=== PATIENT | female | born 1945 | race Caucasian/White ===

== ENCOUNTER 2017-03-27 13:17 | Emergency (ER) | payer MEDICAID, MEDICARE, OTHER ==
--- OUTSIDE RECORDS SUMMARY | 2017-03-27 14:40 | XMS REPORT ---
:1945 External Reference #:[id number] Author Organization [facility] Address [address] [place] [address] Phone [phone] Care Team Providers Name Role Phone Naveen Ly MD Care Team Information [place] Facilitator Unavailable Naveen Ly MD Primary Care Physician Unavailable Payers Type Date Identification Numbers Payment Provider Subscriber Commercial Effective: Policy Number: Medicare Blue Ppo [place] 2017 [id number] PayID: [id number] [address] [address] [place] [address] Medicaid Policy Number: [id number] Medicaid [place] PayID: [id number] [address] [facility] [place] [address] Problems Description No Information Social History Description No Information Available Allergies, Adverse Reactions, Alerts Date Description Reaction Status Severity Comments 01/22/1999 Penicillin Urticaria active 01/22/1999 Ceclor Urticaria active 01/22/1999 Tetanus swollen arm active 01/22/1999 Sulfa Drugs Urticaria active 01/22/1999 Morphine Sulfate possible hives active 01/22/1999 Tetracycline Urticaria active 01/22/1999 Amoxicillin Urticaria active 01/22/1999 Erythro Urticaria active 01/22/1999 Cipro Urticaria active 01/22/1999 Keflex Urticaria active 01/22/1999 Floxin Urticaria active 09/01/1999 Macrobid Urticaria active 03/08/2017 Contrast Dye Urticaria active Medications Medication Date Status Form Strength Qnty SIG Indications Ordering Provider Lyrica 00/00 Active Capsules 25mg 1 every 8 Unknown /0000 hrs Ferrous Sulfate 00/00 Active Tablets 325mg 1 by mouth Unknown /0000 bid Aspirin Adult Low 00/00 Active Tablets 81mg 1 by mouth Unknown Dose /0000 DR every day Tab-A-Wilma Active Tablets 1 by mouth Unknown /0000 every day Magnesium Oxide Active Capsules 400mg two every Unknown -MG Supplement / evening Fluoxetine HCL Active Capsules 20mg 1 by mouth Unknown /0000 every day Spironolactone Active Tablets 25mg 1 by mouth Unknown /0000 every day Valsartan-Hydrochl Active Tablets 160-25mg 1 by mouth Unknown orothiazide / every day Levothyroxine Active Tablets 50mcg 1 by mouth Unknown Sodium / every day Vitamin D Active Capsules 1 by mouth Unknown / every day Atorvastatin Active Tablets 40mg 1 by mouth Unknown Calcium every day Metformin HCL Active Tablets 1000mg take one tablet by mouth twice a day Opana Active Tablets 10mg use 1 by Unknown /0000 mouth every 8 hours Oxymorphone HCL ER Active Tablets 10mg 1 every Unknown / ER 12HR twelve hours Omeprazole 08/24 Hx Capsules 20mg 30cap 1 po qd s vianey Quiles, 03/08 M.D. Note 05/08 Hx flower may have Desirae - dental [facility] 08/24 work \\, has stopped the plavix and has no heart murmur at present Xanax 05/08 Hx Tablets 0.25mg 30tab 1 tab po s QHS prn Desirae, - [employer] 03/08 Mobic 04/07 Hx Tablets 7.5mg 60tab 1-2 PO qd s prn Desirae, - [employer] 03/08 Flexeril 03/24 Hx Tablets 10mg 30tab 1 po tid s prn muscle Desirae, - spasm [facility] 03/08 Zithromax Z-Peter 03/14 Hx Tablets 250mg 1Pack as racheal Blair, 03/24 M.D. Medrol Dose Peter 01/23 Hx Tablets 4mg 1PK take as directed Desirae - [employer] 03/24 Lipitor 01/22 Hx Tablets 40mg 30tab 1 qd s Desirae, - [employer] 03/08 Ketek 01/03 Hx Tablets 5Day Dose 1PK as [place] Peter Saini, - On Package M.D. 01/08 Zithromax 12/26 Hx Capsules 250mg 11cap 2 tabs po s x1, then 1 Desirae, - tab po qd [employer] 01/03 x 9 more days Robitussin ac 12/26 Hx 4Oz 1-2 tsp po q4h prn Desirae, - cough [employer] 03/25 Note 12/26 Hx flower was seen by me Desirae, - today and [employer] 03/24 return to work until wednesday, 11\\\\05 Lipitor 10/29 Hx Tablets 20mg 30tab 1 po qhs s Desirae, - [employer] 01/22 Ibuprofen 10/29 Hx Tablets 400mg 60tab one po q s 12h with Desirae, - food as [employer] 04/07 Nasonex 10/29 Hx 50mcg 1unit 2 sprays s each Desirae, - nostril qd [employer] 03/08 x 2 weeks Prevacid 10/29 Hx Capsules 15mg 30cap 1 qd s Desirae, - [employer] 08/24 HCTZ - 09/04 Hx 25mg 30uni 1 po qam Alecia Hydrochlorothiazid /2004 ts Desirae, e - [employer] 03/08 Cortisporin Otic 09/04 Hx 10ml 4-5 qtts Alecia Sol in l ear Desirae, - canal tid [employer] 03/25 x 5D Zyrtec 09/04 Hx Tablets 10mg 30tab 1 po qd s Desirae, - [employer] 03/08 Zithromax 07/09 Hx Tablets 250mg 6tabs 2 Tabs Day 1 Desirae, - [employer] 09/04 Tab qd Days 2 Thru 5 Albuterol Mdi 07/09 Hx 1unit 2 Puffs s Q4H prn Desirae, - Cough Or [employer] 03/08 Whee Lipitor 07/09 Hx Tablets 10mg 30tab 1 po qd s Desirae, - [employer] 10/29 Vicodin 07/03 Hx Tablets 5mg;500 60tab 1-2 po q6h mg s prn Desirae, - [employer] 10/29 Singulair 06/12 Hx 10mg 30uni 1 po qhs ts Desirae, - [employer] 03/08 Levoxyl 05/01 Hx 50mcg 30uni 1 qd ts Desirae, - [employer] 03/08 Prednisone 04/23 Hx 20mg 18uni 3 qd x 3d, ts 2 qd x 3d, Desirae, - 1 qd x 3d [employer] 07/03 Nebulizer 04/23 Hx 1unit s Desirae, - [employer] 03/25 Nebulizer Kits And 04/23 Hx use as Alecia directed Desirae, - [employer] 03/25 Duoneb 04/23 Hx 1Box use as directed Desirae, - [employer] 03/08 Zithromax 04/23 Hx 500mg 3unit one po for s three days Desirae, - [employer] 07/03 Diflucan 03/04 Hx 150mg 1unit 1 po one s time Desirae, - [employer] 04/24 Tessalon Pearls 02/25 Hx 100mg 30uni 1 po tid ts prn For Jimmy, - Cough Afnp-C 03/07 Levoxyl 02/21 Hx 88mcg 30uni 1 qd ts Desirae, - [employer] 05/01 Mucinex 02/20 Hx 600mg 1Bott one bid le prn Jimmy, - Afnp-C 04/24 Lotrimin CR 02/20 Hx 15gm apply bid to Jimmy, - afftected Afnp-C 04/24 Ibuprofen 01/30 Hx 800mg 60uni 1 tab ts q12hrs Desirae, - [employer] 10/29 Estrace 01/15 Hx 0.5mg 30uni 1 qd ts Desirae, - [employer] 03/08 Bactroban Cream 01/15 Hx 15gm apply to affected Desirae, - areas [employer] 04/24 daily directed Levoxyl 12/12 Hx 25mcg 30uni 2 qd ts Desirae, - [employer] 02/21 Zithromax 11/07 Hx 250mg 6unit 2 tabs day s 1 Desirae, - [employer] 12/12 tab qd days 2 thru 5 Nicoderm-MMD 11/02 Hx Patch 1Set 21 mg/d x 4 wk, 14 Desirae, - mg/d x 2 [employer] 01/15 wk, 7 mg/d x 2 wk Zithromax 09/20 Hx 250mg 6unit 2 tabs day s 1 Desirae, - [employer] 11/02 tab qd days 2 thru 5 Singulair 09/20 Hx 10mg 30uni 1 po qhs ts Jimmy, - Afnp-C 04/24 Mycolog-II 07/30 Hx Cream 30gm apply bid to Desirae, - affected [employer] 01/15 Combivent Mdi 07/04 Hx 1unit 2 puffs s qid Jimmy, - Afnp-C 04/24 Robitussin DM 07/04 Hx 4Oz 1-2 tsp q4h prn as Jimmy, - needed for Afnp-C 04/24 Zithromax 06/21 Hx 250mg 6unit 2 tabs day s 1 Jimmy, - Afnp-C 06/26 tab qd days 2 thru 5 Mucinex 06/21 Hx 600mg 20uni One bid ts prn Jimmy, - Afnp-C 07/04 Effexor XR 06/21 Hx Tablets 75mg 60tab 2 po qd s Desirae, - [employer] 03/08 Effexor XR 05/18 Hx 75mg 30uni 1 po qd ts Desirae, - [employer] 07/04 Zithromax 01/02 Hx 250mg 6unit 2 tabs day s 1 Desirae, - [employer] 02/26 tab qd days 2 thru 5 Paxil CR 12/14 Hx 37.5mg 30uni 1 po qd ts Desirae, - [employer] 05/18 Premarin 12/14 Hx .3mg 30uni 1 po qd ts Desirae, - [employer] 01/15 Celebrex 12/06 Hx Tabs 200mg 60tab 1 po bid s Desirae, - [employer] 03/29 Lexapro 12/06 Hx 10mg 28uni 1 PO qd ts Desirae, - [employer] 12/14 Serzone 11/16 Hx 150mg 60uni 1 bid ts Desirae, - [employer] 12/06 Ultram 08/31 Hx 50mg 90uni 1-2 po q6h ts prn Desirae, - [employer] 07/03 Inderal LA 08/02 Hx 80mg 30uni one qd ts Desirae, - [employer] 12/12 Xanax 08/02 Hx .25mg 30uni 1 po q hs ts Desirae, - [employer] 12/26 Inderal 08/02 Hx 20mg 60uni 1 PO bid ts Desirae, - [employer] 03/08 Norvasc 04/21 Hx 5mg 30uni 1 po qd ts Desirae, - [employer] 03/08 Ultram 04/21 Hx 50mg 30uni 1 PO Q6H ts prn Desirae, - [employer] 08/31 Depakote 03/29 Hx 500mg 60uni 1 q am 1 ts q pm Desirae, - [employer] 07/03 Nexium 02/23 Hx 40mg 30uni 1 qd ts Desirae, - [employer] 03/27 Entex Pse 01/23 Hx 30uni 1 bid prn ts Congestion Desirae, - [employer] 08/31 Zithromax 01/17 Hx 250mg 6unit 2 Tabs Day s 1 Desirae, - [employer] 01/27 Tab qd Days 2 Thru 5 Z-Pack 12/22 Hx 1unit as s Directed Desirae, - [employer] 12/28 Note 12/19 Hx PT Has Not Taken Her Desirae, - Plavix In [employer] 03/27 1 And May Have Dental Work This Week. Shower Seat 11/04 Hx DX Chronic Pain, Desirae, - Pre-Syncop [employer] 03/27 Episodes Air Conditioner 10/11 Hx One DX- HTN, CVA, Desirae, - [employer] 03/27 Lumbar Support 10/11 Hx 1unit as Bra s Directed. Desirae, - [employer] 12/06 Darvocet N 100 10/03 Hx 90uni 1 tid Alecia With Apap ts Desirae, - [employer] 03/27 Neurontin 09/16 Hx 100mg 90uni 1 tid ts Desirae, - [employer] 01/23 Physical Therapy 09/16 Hx For Low Back Pain Desirae, - [employer] 01/23 Cane 09/16 Hx 1unit Use as s Directed Desirae, - [employer] 03/27 Nystatin Cream 07/22 Hx 30gm Apply bid To Desirae, - Effected [employer] 03/27 Zithromax 07/05 Hx 250mg 6unit 2 Tabs Day s 1 Desirae, - [employer] 07/10 Tab qd Days 2 Thru 5 Plavix 05/12 Hx 75mg 30uni 1 po qd ts Desirae, - [employer] 03/08 Sling 03/14 Hx 1unit Wear s During The Desirae, - Day [employer] 05/12 Neurontin 03/11 Hx 300mg 120un 1 PO qid its Desirae, - [employer] 01/23 Nix Cream Rinse 01/25 Hx 1Bott Use as le Racheal Mojica, - With Comb Afnp-C 05/12 Zithromax 10/25 Hx 250mg 6unit 2 Tabs Day s 1 Desirae, - [employer] 11/04 Tab qd Days 2 Thru 5 Note 10/01 Hx Appt Sched For You To Desirae, - See [facility] 10/02 Tyson 10/15/00 @ 1:30PM. Zithromax 09/06 Hx 250mg 6unit 2 Tabs Day s 1 Desirae, - [employer] 09/16 Tab qd Days 2 Thru 5 Zithromax 08/09 Hx 250mg 6unit 2 Tabs s 1 Desirae, - [employer] 08/19 Tab qd Days 2 Thru 5 HCTZ - 08/09 Hx 25mg 15uni 1\\2 PO qd Alecia Hydrochlorothiaz ts Desirae, e - [employer] 08/31 Depakote Sprinkle 07/14 Hx 500mg 60uni 1 Am 1 PO ts PM Desirae, - [employer] 03/29 Benedryl 06/28 Hx 25mg 30uni 1-2 Q4-6H ts prn Itch Desirae, - [employer] 05/12 Premarin 06/11 Hx 0.3mg 30uni 1 PO qd ts Desirae, - [employer] 08/31 Xanax 06/11 Hx .25mg 30uni 1 q hs prn ts Desirae, - [employer] 11/04 Zithromax 05/03 Hx 250mg 6unit 2 Tabs Day s 1 Desirae, - [employer] 05/13 Tab qd Days 2 Thru 5 Premarin 04/12 Hx 0.3mg 30uni 1 PO qd ts Desirae, - [employer] 06/11 Premarin 03/15 Hx .625 30uni 1 PO qd ts Desirae, - [employer] 04/12 Mycolog-II 02/01 Hx 15gm Apply bid To Desirae, - Effected [employer] 02/11 Zithromax 01/25 Hx 250mg 6unit 2 Tabs Day s 1 Desirae, - [employer] 02/01 Tab qd Days 2 Thru 5 Robitussin DM 01/25 Hx 4Oz One TSP Q4H prn as Desirae, - Needed For [employer] 02/04 Cough Neutronton 01/04 Hx 100mg 120un 1 PO qid its [place], - Afnp-C 05/12 Ultram 12/07 Hx 50mg 120un 2 PO bid its prn Desirae, - [employer] 10/03 Zithromax 12/07 Hx 250mg 6unit 2 Tabs Day s 1 Desirae, - [employer] 12/17 Tab qd Days 2 Thru 5 Bactroban 11/02 Hx 15gm Apply tid Desirae, - [employer] 12/02 Xanax 09/28 Hx .25mg 30uni 1 @hs prn ts Desirae, - [employer] 10/28 Zithromax 05/20 Hx 250mg 6unit 2 Tabs Day s 1 Desirae, - [employer] 05/30 Tab qd Days 2 Thru 5 Klonopin 04/09 Hx 0.5mg 60uni one qam ts and 1qhs Desirae, - [employer] 03/08 Zithromax 04/09 Hx 250mg 6unit 2 Tabs Day s 1 Desirae, - [employer] 04/18 Tab qd Days 2 Thru 5 Robitussin ac 04/09 Hx 4Oz 1-2 TSP PO Q4H prn Desirae, - Cough [employer] 07/27 Triamcinolone 03/05 Hx 30gm Use tid Alecia Desirae, - [employer] 08/31 Oscal 01/22 Hx 500mg 60uni 1 bid with ts food Desirae, - [employer] 12/26 Celebrex 01/22 Hx Tabs 200mg 60tab 1 PO bid s prn Desirae, - [employer] 08/31 Ultram 01/22 Hx 50mg 90uni Q6HPRN ts Desirae, - [employer] 12/07 Depakote Sprinkle 01/22 Hx 250mg 0unit 1 Q Am And s 3 Q hs Desirae, - [facility] 07/14 Klonopin 01/22 Hx 0.5mg 0unit 1/2 Tab s Am,2 Tabs Desirae, - hs [employer] 07/27 Serzone 01/22 Hx 150mg 60uni 2QHS ts Desirae, - [employer] 08/31 Serzone 01/22 Hx 50mg 1/2QHS Desirae, - [employer] 05/12 Norvasc 01/22 Hx 5mg 30uni qd ts Desirae, - [facility] 11/04 Immunizations CPT Code Status Date Vaccine Lot # [id number] Given 01/26/2000 DO Not Use Split Influenza Virus Vaccine Vital Signs Date Vital Result Comment 03/08/2017 BP Systolic 116 mmHg BP Diastolic 65 mmHg Heart Rate 92 /min Body Temperature 98.2 F Height 64.5 inches 5'4.50" Weight 187.00 lb BMI (Body Mass Index) 31.6 kg/m2 03/24/2005 BP Systolic 148 mmHg BP Diastolic 76 mmHg Heart Rate 80 /min Body Temperature 97.6 F Height 63.5 inches 5'3.50" Weight 216.00 lb BMI (Body Mass Index) 37.7 kg/m2 01/23/2005 BP Systolic 112 mmHg BP Diastolic 66 mmHg Heart Rate 64 /min Body Temperature 98.1 F Height 63.5 inches 5'3.50" Weight 212.00 lb BMI (Body Mass Index) 37.0 kg/m2 01/03/2005 BP Systolic 142 mmHg BP Diastolic 92 mmHg Heart Rate 72 /min Body Temperature 97.8 F Height 63.5 inches 5'3.50" Weight 212.00 lb BMI (Body Mass Index) 37.0 kg/m2 12/26/2004 BP Systolic 124 mmHg BP Diastolic 80 mmHg Body Temperature 98.1 F Height 63.5 inches 5'3.50" Weight 114.00 lb BMI (Body Mass Index) 19.9 kg/m2 10/29/2004 BP Systolic 126 mmHg BP Diastolic 84 mmHg Heart Rate 68 /min Body Temperature 98.8 F Respiratory Rate 12 /min Height 63.5 inches 5'3.50" 09/04/2004 BP Systolic 140 mmHg BP Diastolic 90 mmHg Body Temperature 98.5 F Height 63.5 inches 5'3.50" Weight 208.00 lb BMI (Body Mass Index) 36.3 kg/m2 07/09/2004 BP Systolic 110 mmHg BP Diastolic 70 mmHg Heart Rate 68 /min Body Temperature 98.3 F O2 % BldC Oximetry 94 % Height 63.5 inches 5'3.50" Weight 207.00 lb BMI (Body Mass Index) 36.1 kg/m2 07/03/2004 BP Systolic 134 mmHg BP Diastolic 80 mmHg Heart Rate 72 /min Body Temperature 97.6 F Height 63.5 inches 5'3.50" Weight 212.00 lb BMI (Body Mass Index) 37.0 kg/m2 04/25/2004 BP Systolic 128 mmHg BP Diastolic 88 mmHg Heart Rate 60 /min Height 63.5 inches 5'3.50" 04/23/2004 BP Systolic 130 mmHg BP Diastolic 70 mmHg Heart Rate 68 /min Body Temperature 98.0 F Height 63.5 inches 5'3.50" Weight 201.00 lb BMI (Body Mass Index) 35.0 kg/m2 02/26/2004 BP Systolic 140 mmHg BP Diastolic 70 mmHg Heart Rate 84 /min Body Temperature 97.2 F Height 63.5 inches 5'3.50" Weight 200.00 lb BMI (Body Mass Index) 34.9 kg/m2 02/21/2004 BP Systolic 120 mmHg BP Diastolic 84 mmHg Heart Rate 84 /min Body Temperature 98.2 F Height 63.5 inches 5'3.50" Weight 201.00 lb BMI (Body Mass Index) 35.0 kg/m2 01/31/2004 BP Systolic 148 mmHg BP Diastolic 84 mmHg Heart Rate 84 /min Height 63.5 inches 5'3.50" Weight 197.00 lb BMI (Body Mass Index) 34.3 kg/m2 01/16/2004 BP Systolic 130 mmHg BP Diastolic 70 mmHg Heart Rate 60 /min Body Temperature 97.1 F Height 63.5 inches 5'3.50" Weight 199.00 lb BMI (Body Mass Index) 34.7 kg/m2 12/13/2003 BP Systolic 138 mmHg BP Diastolic 70 mmHg Heart Rate 66 /min Height 63.5 inches 5'3.50" Weight 193.00 lb BMI (Body Mass Index) 33.6 kg/m2 11/08/2003 BP Systolic 138 mmHg BP Diastolic 70 mmHg Heart Rate 60 /min Body Temperature 98.1 F Height 63.5 inches 5'3.50" Weight 184.00 lb BMI (Body Mass Index) 32.1 kg/m2 09/21/2003 BP Systolic 140 mmHg BP Diastolic 80 mmHg Heart Rate 82 /min Body Temperature 98.6 F Height 63.5 inches 5'3.50" 07/05/2003 BP Systolic 140 mmHg BP Diastolic 80 mmHg Body Temperature 98.8 F Height 63.5 inches 5'3.50" Weight 175.00 lb BMI (Body Mass Index) 30.5 kg/m2 06/22/2003 BP Systolic 160 mmHg BP Diastolic 90 mmHg Heart Rate 68 /min Body Temperature 98.6 F Height 63.5 inches 5'3.50" Weight 173.00 lb BMI (Body Mass Index) 30.2 kg/m2 03/29/2003 BP Systolic 148 mmHg BP Diastolic 94 mmHg Heart Rate 68 /min Height 63.5 inches 5'3.50" Weight 163.00 lb BMI (Body Mass Index) 28.4 kg/m2 12/06/2002 BP Systolic 140 mmHg BP Diastolic 70 mmHg Body Temperature 99.0 F Height 63.5 inches 5'3.50" Weight 141.00 lb BMI (Body Mass Index) 24.6 kg/m2 10/05/2002 BP Systolic 110 mmHg BP Diastolic 86 mmHg Heart Rate 64 /min Body Temperature 97.6 F Height 63.5 inches 5'3.50" Weight 145.00 lb BMI (Body Mass Index) 25.3 kg/m2 08/31/2002 BP Systolic 122 mmHg BP Diastolic 78 mmHg Heart Rate 56 /min Height 63.5 inches 5'3.50" Weight 142.00 lb BMI (Body Mass Index) 24.8 kg/m2 08/02/2002 BP Systolic 122 mmHg BP Diastolic 78 mmHg Heart Rate 56 /min Height 63.5 inches 5'3.50" Weight 143.00 lb BMI (Body Mass Index) 24.9 kg/m2 06/29/2002 BP Systolic 126 mmHg BP Diastolic 60 mmHg Heart Rate 52 /min Height 63.5 inches 5'3.50" Weight 150.00 lb BMI (Body Mass Index) 26.6 kg/m2 06/16/2002 BP Systolic 110 mmHg BP Diastolic 70 mmHg Heart Rate 68 /min Height 63.5 inches 5'3.50" Weight 152.00 lb BMI (Body Mass Index) 26.9 kg/m2 04/19/2002 BP Systolic 130 mmHg BP Diastolic 80 mmHg Heart Rate 80 /min Body Temperature 98.4 F Height 63.5 inches 5'3.50" Weight 158.00 lb BMI (Body Mass Index) 28.0 kg/m2 03/27/2002 BP Systolic 144 mmHg BP Diastolic 82 mmHg Heart Rate 60 /min Height 63.5 inches 5'3.50" Weight 157.00 lb BMI (Body Mass Index) 27.8 kg/m2 02/23/2002 BP Systolic 126 mmHg BP Diastolic 64 mmHg Heart Rate 60 /min Body Temperature 97.3 F Height 63.5 inches 5'3.50" Weight 161.00 lb BMI (Body Mass Index) 28.5 kg/m2 01/23/2002 BP Systolic 140 mmHg BP Diastolic 70 mmHg Heart Rate 76 /min Body Temperature 96.5 F Height 63.5 inches 5'3.50" Weight 161.00 lb BMI (Body Mass Index) 28.5 kg/m2 11/04/2001 BP Systolic 124 mmHg BP Diastolic 70 mmHg Heart Rate 68 /min Height 63.5 inches 5'3.50" Weight 159.00 lb BMI (Body Mass Index) 28.2 kg/m2 10/03/2001 BP Systolic 120 mmHg BP Diastolic 70 mmHg Heart Rate 64 /min Height 63.5 inches 5'3.50" Weight 160.00 lb BMI (Body Mass Index) 28.3 kg/m2 09/16/2001 BP Systolic 114 mmHg BP Diastolic 60 mmHg Heart Rate 68 /min Height 63.5 inches 5'3.50" Weight 161.00 lb BMI (Body Mass Index) 28.5 kg/m2 07/22/2001 BP Systolic 122 mmHg BP Diastolic 70 mmHg Heart Rate 97.9 /min Height 63.5 inches 5'3.50" Weight 166.00 lb BMI (Body Mass Index) 29.4 kg/m2 05/12/2001 BP Systolic 120 mmHg BP Diastolic 70 mmHg Heart Rate 78 /min Body Temperature 98.6 F Respiratory Rate 16 /min Height 63.5 inches 5'3.50" Weight 165.00 lb BMI (Body Mass Index) 29.2 kg/m2 03/14/2001 BP Systolic 130 mmHg BP Diastolic 80 mmHg Heart Rate 76 /min Height 63.5 inches 5'3.50" Weight 169.00 lb BMI (Body Mass Index) 29.9 kg/m2 03/11/2001 BP Systolic 132 mmHg BP Diastolic 88 mmHg Height 63.5 inches 5'3.50" 10/25/2000 Body Temperature 97.3 F Height 63.5 inches 5'3.50" Weight 177.00 lb BMI (Body Mass Index) 31.4 kg/m2 09/24/2000 BP Systolic 122 mmHg BP Diastolic 70 mmHg Body Temperature 97.4 F Height 63.5 inches 5'3.50" Weight 174.00 lb BMI (Body Mass Index) 30.8 kg/m2 09/06/2000 BP Systolic 132 mmHg BP Diastolic 80 mmHg Height 63.5 inches 5'3.50" Weight 174.00 lb BMI (Body Mass Index) 30.8 kg/m2 08/09/2000 BP Systolic 130 mmHg BP Diastolic 86 mmHg Heart Rate 72 /min Body Temperature 97.6 F Height 63.5 inches 5'3.50" Weight 176.00 lb BMI (Body Mass Index) 31.2 kg/m2 07/14/2000 BP Systolic 140 mmHg BP Diastolic 66 mmHg Heart Rate 56 /min Body Temperature 97.7 F Height 63.5 inches 5'3.50" 06/28/2000 BP Systolic 128 mmHg BP Diastolic 70 mmHg Heart Rate 72 /min Body Temperature 98.1 F Height 63.5 inches 5'3.50" Weight 194.00 lb BMI (Body Mass Index) 34.4 kg/m2 06/11/2000 BP Systolic 130 mmHg BP Diastolic 76 mmHg Heart Rate 72 /min Height 63.5 inches 5'3.50" Weight 173.00 lb BMI (Body Mass Index) 30.6 kg/m2 05/03/2000 BP Systolic 148 mmHg BP Diastolic 80 mmHg Heart Rate 70 /min Body Temperature 97.1 F Height 63.5 inches 5'3.50" Weight 173.00 lb BMI (Body Mass Index) 30.6 kg/m2 04/12/2000 BP Systolic 150 mmHg BP Diastolic 82 mmHg Heart Rate 60 /min Body Temperature 97.5 F Height 63.5 inches 5'3.50" Weight 170.00 lb BMI (Body Mass Index) 30.1 kg/m2 03/15/2000 BP Systolic 138 mmHg BP Diastolic 72 mmHg Heart Rate 70 /min Body Temperature 95.9 F Height 63.5 inches 5'3.50" Weight 170.00 lb BMI (Body Mass Index) 30.1 kg/m2 02/02/2000 BP Systolic 130 mmHg BP Diastolic 70 mmHg Heart Rate 70 /min Body Temperature 98.1 F Height 63.5 inches 5'3.50" Weight 174.00 lb BMI (Body Mass Index) 30.8 kg/m2 01/26/2000 BP Systolic 128 mmHg BP Diastolic 70 mmHg Heart Rate 70 /min Body Temperature 98.5 F Height 63.5 inches 5'3.50" Weight 176.00 lb BMI (Body Mass Index) 31.2 kg/m2 01/05/2000 BP Systolic 130 mmHg BP Diastolic 70 mmHg Heart Rate 68 /min Height 63.5 inches 5'3.50" Weight 175.00 lb BMI (Body Mass Index) 31.0 kg/m2 12/08/1999 BP Systolic 138 mmHg BP Diastolic 70 mmHg Heart Rate 84 /min Height 63.5 inches 5'3.50" Weight 178.00 lb BMI (Body Mass Index) 31.5 kg/m2 11/03/1999 BP Systolic 116 mmHg BP Diastolic 70 mmHg Heart Rate 72 /min Body Temperature 97.7 F Height 63.5 inches 5'3.50" Weight 175.00 lb BMI (Body Mass Index) 31.0 kg/m2 09/29/1999 BP Systolic 130 mmHg BP Diastolic 84 mmHg Height 63.5 inches 5'3.50" Weight 171.00 lb BMI (Body Mass Index) 30.3 kg/m2 09/01/1999 Height 63.5 inches 5'3.50" Weight 172.00 lb BMI (Body Mass Index) 30.5 kg/m2 07/28/1999 BP Systolic 134 mmHg BP Diastolic 82 mmHg Height 63.5 inches 5'3.50" 05/21/1999 BP Systolic 130 mmHg BP Diastolic 84 mmHg Height 63.5 inches 5'3.50" Weight 168.00 lb BMI (Body Mass Index) 29.8 kg/m2 04/09/1999 BP Systolic 142 mmHg La sm cuff BP Diastolic 80 mmHg La sm cuff Height 63.5 inches 5'3.50" Weight 160.00 lb BMI (Body Mass Index) 28.3 kg/m2 03/27/1999 BP Systolic 130 mmHg LA SM Cuff BP Diastolic 78 mmHg LA SM Cuff Height 63.5 inches 5'3.50" Weight 161.00 lb BMI (Body Mass Index) 28.5 kg/m2 03/05/1999 BP Systolic 142 mmHg BP Diastolic 80 mmHg Height 63.5 inches 5'3.50" Weight 164.00 lb BMI (Body Mass Index) 29.0 kg/m2 01/22/1999 BP Systolic 120 mmHg BP Diastolic 70 mmHg Height 63.5 inches 5'3.50" Weight 164.00 lb BMI (Body Mass Index) 29.0 kg/m2 Results Test Date Test Result H/L Range Note Lipid Profile (a) Female 12/26/2004 Cholesterol 214 mg/dL High 120-200 Triglyceride 186 mg/dL 30-200 HDL-Chol 38 mg/dL 30-85 LDL, Calculated ([facility]) 138 CALC High 0-129 LDL Direct ([facility]) - mg/dL 0-130 VLDL 37 0-50 HDL Risk Factor (Fma) 5.6 CALC 4.2-7.0 Free T4/TSH 12/26/2004 TSH ([facility]) 1.03 uIU/ml 0.5-6.0 ([facility]) Free T4 ([facility]) 1.33 ng/dL 0.75-1.54 Laboratory test finding 07/03/2004 TSH ([facility]) 1.64 uIU/ml 0.5- 6.0 T4 Free 1.08 Lipid Profile (a) Female 07/03/2004 Cholesterol 237 mg/dL High 120-200 Triglyceride 251 mg/dL High 30-200 HDL-Chol 35 mg/dL 30-85 LDL, Calculated ([facility]) 152 CALC High 0-129 LDL, Direct - mg/dL 0-130 VLDL 50 0-50 HDL Risk Factor ([facility]) 6.7 CALC 4.2-7.0 PT/Inr (a/CMC) 07/03/2004 PT--Therapy ([facility]) 12.5 SEC 10-14 Inr 1.0 0.9-1.1 Comp Metabolic ([facility]) 07/03/2004 Glucose, Serum (a/CMC/CTX) 85 mg/dL 70- 105 Female BUN ([facility]) 17 mg/dL 6-26 Creatinine, Serum 0.7 mg/dL 0.6-1.4 BUN/Creatinin Ratio 24.8 8.0-36 Sodium 143 134-149 Potassium 4.4 3.6-5.5 Chloride 105 mEq/L 94-112 Co2 29 21-32 Calcium ([facility]) 9.3 mg/dL 8.6-10.2 Total Protein 7.5 g/dL 6.3-8.1 Albumin (a/[facility]) 4.4 3.8-5.5 Globulin 3.0 2.0-4.8 A/G Ratio (A/G Ratio) 1.4 0.6-2.2 Alkaline Phosphatase (F/C/CTX) 87 U/L 30-110 Alt (SGPT) ([facility]) 15 7-35 Ast (Sgot) ([facility]) 12 U/mL 5-34 Bilirubin, Total 0.3 mg/dL 0.2-1.3 CBC Electronic ([facility]) 07/03/2004 WBC 8.3 3.6-9.6 Lymphocytes 31.8 % 20.5 - 51.1 Monocytes 5.4 % 1.7-9.3 Granulocytes 62.8 % 42.2 - 75.2 Lymphocytes 2.6 10^3/uL 0.7 - 4.9 Monocytes 0.4 10^3/uL 0.1 - 0.9 Granulocytes 5.2 10^3/uL 1.5 - 7.2 RBC 4.54 3.90-5.70 Hemoglobin ([facility]/CTX) 13.9 g/dL 12.1 - 17.2 Hematocrit ([facility]/CMC/CTX) 40.3 % 36.1 - 50.3 Mean Corpuscular Vol 88.8 82.2-97.4 Mean Corpuscular Hemaglobin 30.5 27.6-33.3 Mean Corpuscular Hemo Concen 34.4 33.0-36.0 RDW 14.6 High 11.6-13.7 Platelets 367. 10^3/ul 150-400 Mean Platelet Volume 8.0 7.4-10.4 Free T4/TSH 04/25/2004 TSH (a/CMC/[facility]) 0.47 uIU/ml Low 0.5-6.0 1 (a/CMC/[facility]) Free T4 1.41 ng/dL 0.75-1.54 Laboratory test finding 01/16/2004 Hemoglobin A1c (F/C/CTX) 5.5 % 4.1- 5.7 Free T4/TSH 01/16/2004 TSH (a/CMC/[facility]) 2.33 uIU/ml 0.5-6.0 (a/CMC/[facility]) Free T4 1.35 ng/dL 0.75-1.54 CBC Electronic ([facility]) 11/08/2003 WBC 6.8 3.6-9.6 Lymphocytes 38.3 % 20.5 - 51.1 Monocytes 3.2 % 1.7-9.3 Granulocytes 58.5 % 42.2 - 75.2 Lymphocytes 2.6 10^3/uL 0.7 - 4.9 Monocytes 0.2 10^3/uL 0.1 - 0.9 Granulocytes 4.0 10^3/uL 1.5 - 7.2 RBC 5.18 3.90-5.70 Hemoglobin (a/CMC/CTX) 15.6 g/dL 12.1 - 17.2 Hematocrit (a/CMC/CTX) 47.2 % 36.1 - 50.3 Mean Corpuscular Vol 91.1 82.2-97.4 Mean Corpuscular Hemaglobin 30.1 27.6-33.3 Mean Corpuscular Hemo Concen 33.0 33.0-35.5 RDW 13.5 11.6-13.7 Platelets 316. 10^3/ul 150-400 Mean Platelet Volume 7.5 7.4-10.4 Comp Metabolic ([facility]) 11/08/2003 Glucose, Serum ([facility]/CMC/CTX) 94 mg/dL 70- 118 Female BUN (a/[facility]) 15 mg/dL 6-26 Creatinine, Serum 0.8 mg/dL 0.6-1.4 BUN/Creatinin Ratio 18.0 8.0-36 Sodium 143 134-149 Potassium 4.9 3.6-5.5 Chloride 100 mEq/L 94-112 Co2 30 21-32 Calcium (a/[facility]) 9.5 mg/dL 8.6-10.2 Total Protein 8.0 g/dL 6.3-8.1 Albumin (a/[facility]) 4.4 3.8-5.5 Globulin 3.6 2.0-4.8 A/G Ratio (A/G Ratio) 1.2 0.6-2.2 Alkaline Phosphatase (F/C/CTX) 64 U/L 30-110 Alt (SGPT) 20 10-40 Ast (Sgot) (a/CMC/[facility]) 15 U/mL 5-34 Bilirubin, Total 0.3 mg/dL 0.2-1.3 Laboratory test finding 11/08/2003 TSH (a/[facility]) 2.54 uIU/ml 0.5- 6.0 Laboratory test finding 09/21/2003 Wound Culture FINAL 2 Gram Stain Additional FINAL 3 Gram Negative Susc. Panel FINAL2 Gni Panel FINAL2.00 Laboratory test finding 08/17/2003 TSH (a/[facility]) 1.44 0.34-5.60 Free T4/TSH 07/05/2003 TSH ([facility]) 1.90 uIU/ml 0.5-6.0 (a/CMC/[facility]) Free T4 (a/[facility]) 0.99 ng/dL 0.75-1.54 Free T4/TSH 03/29/2003 TSH (a/[facility]) 2.84 uIU/ml 0.5-6.0 (a/[facility]) Free T4 (a/[facility]) 1.02 ng/dL 0.75-1.54 Free T4/TSH (a/[facility]) 12/06/2002 TSH 1.31 uIU/ml 0.5-6.0 Free T4 1.18 ng/dL 0.75-1.54 PT/Inr ([facility]) 10/05/2002 PT--Therapy ([facility]) 11.5 SEC 10-14 Inr 0.9 0.9-1.1 Lipid Profile ([facility]) 10/05/2002 Cholesterol 201 mg/dL High 120-200 Triglyceride 86 mg/dL 30-200 HDL-Chol 47 30-85 LDL-Calculated ([facility]) 137 CALC High 0-129 VLDL 17 0-50 HDL Risk Factor ([facility]) 4.3 CALC 4.2-7.0 Free T4/TSH ([facility]) 10/05/2002 TSH 1.76 uIU/ml 0.5-6.0 Free T4 1.05 ng/dL 0.75-1.54 Free T4/TSH ([facility]) 08/31/2002 TSH 1.99 uIU/ml 0.5-6.0 Free T4 0.90 ng/dL 0.75-1.54 PT/Inr ([facility]) 08/31/2002 PT--Therapy ([facility]) 11.6 SEC 10-14 Inr 1.0 0.9-1.1 Laboratory test finding 08/02/2002 T-3 Total 70 ng/dL 59 - 174 Free T4/TSH ([facility]) 08/02/2002 TSH 1.24 uIU/ml 0.5-6.0 Free T4 1.19 ng/dL 0.75-1.54 Renal Panel ([facility]) 06/29/2002 Glucose, Serum ([facility]/CTX) 96 mg/dL 70- 118 BUN ([facility]) 20 mg/dL 7-26 Creatinine ([facility]/CTX) 0.7 mg/dL 0.6-1.4 BUN/Creatinin Ratio 26.7 8.0-36 Sodium 143 134-149 Potassium 4.5 3.6-5.5 Chloride 99 mEq/L 94-112 Co2 33 RECHECKED High 21-32 Phosphorus 3.4 mg/dL 2.5-4.8 Calcium ([facility]) 9.3 mg/dL 8.6-10.0 Albumin ([facility]) 4.2 3.8-5.5 CBC Electronic ([facility]) 06/29/2002 WBC 4.8 3.6-9.6 Lymphocytes 34.9 % 20.5 - 51.1 Monocytes 7.8 % 1.7-9.3 Granulocytes 57.3 % 42.2 - 75.2 Lymphocytes 1.7 10^3/uL 0.7 - 4.9 Monocytes 0.4 10^3/uL 0.1 - 0.9 Granulocytes 2.8 10^3/uL 1.5 - 7.2 RBC 4.67 3.90-5.70 Hemoglobin (a/CMC/CTX) 14.0 g/dL 12.1 - 17.2 Hematocrit (a/CMC/CTX) 41.9 % 36.1 - 50.3 Mean Corpuscular Vol 89.8 82.2-97.4 Mean Corpuscular Hemaglobin 29.9 27.6-33.3 Mean Corpuscular Hemo Concen 33.3 33.0-34.8 RDW 12.5 11.6-13.7 Platelets 170. 10^3/ul 150-400 Mean Platelet Volume 8.9 7.4-10.4 Laboratory test finding 04/19/2002 Valproic Acid 93.0 ug/ml 50 - 100 Comp Metabolic ([facility]) 04/19/2002 Glucose, Serum 87 mg/dL 70-118 (a/CMC/CTX) BUN (a/[facility]) 20 mg/dL 7-26 Creatinine (a/CMC/CTX) 0.6 mg/dL 0.6-1.4 BUN/Creatinin Ratio 32.5 8.0-36 Sodium 142 134-149 Potassium 4.7 3.6-5.5 Chloride 99 mEq/L 94-112 Co2 31 21-32 Calcium (a/[facility]) 9.6 mg/dL 8.6-10.0 Total Protein 7.8 g/dL 6.3-8.1 Albumin ([facility]) 4.7 3.8-5.5 Globulin 3.1 2.0-4.8 A/G Ratio (a/CMC/[facility]) 1.5 0.6-2.2 Alkaline Phosphatase 54 U/L 30-110 Alt (SGPT) 14 10-40 Ast (Sgot) ([facility]) 17 U/mL 5-34 Bilirubin, Total 0.5 mg/dL 0.2-1.3 Lipid Profile ([facility]) 04/19/2002 Cholesterol 241 mg/dL High 120-200 Triglyceride 130 mg/dL 30-200 HDL-Chol 68 30-85 LDL-Calculated ([facility]) 147 CALC High 0-129 VLDL 26 0-50 HDL Risk Factor ([facility]) 3.5 CALC Low 4.2-7.0 Free T4/TSH ([facility]) 04/19/2002 TSH 0.04 uIU/ml Low 0.5-6.0 Free T4 1.15 ng/dL 0.75-1.54 Basic Metabolic ([facility]) 04/11/2002 Sodium 139 mmol/L 135-145 Potassium 3.8 mmol/L 3.5-5.0 Chloride 103 mmol/L 101-111 Co2 33.0 mmol/L High 22-32 Glucose, Serum ([facility]/CTX) 100 mg/dL 70-105 BUN ([facility]) 20 mg/dL 6-24 Creatinine 0.6 mg/dL 0.5-1.4 BUN/Creatinin Ratio 33.3 High 8-20 Calcium 9.1 mg/dL 8.7-10.2 Laboratory test finding 04/11/2002 Troponin-I/TnI 0.03 ng/mL 0-0.06 4 PT/Inr ([facility]) 04/11/2002 PT--Therapy 11.4 SEC 10.7-13.1 ([facility]) Inr 0.94 5 Laboratory test finding 04/11/2002 Aptt 24.7 SEC 20.3-33.7 CBC W/ Manual Diff ([facility]) 04/11/2002 WBC 5.8 CUMM 4.8-10.8 RBC 4.54 CUMM 4.2-5.4 Hemoglobin ([facility]/CTX) 13.3 g/dL 12.0-16.0 Hematocrit 41 % 35-47 Mean Corpuscular Vol 90 UM3 79-97 Mean Corpuscular Hemaglobin 29 pg 27-31 Mean Corpuscular Hemo Concen 33 g/dL 32-36 RDW 12 10.5-15 Platelets 241 CUMM 150-450 Mean Platelet Volume 8.0 7.4-10.4 Poly From [facility] 37 Low 38-83 Band - 0-8 Lymph From [facility] 51 High 5-47 Monocytes 3 % 0-13 Eosinophils 3 0-6 Atypical Lymph 5 0-6 Morphology NORMAL Basophils 1 Laboratory test finding 04/11/2002 Comments SEE DETAIL 6 Laboratory test finding 10/05/2001 Comments IMAGE-OLD LABS - Basic Metabolic ([facility]) 09/03/2001 Sodium 139 mmol/L 135-145 Potassium 4.0 3.5-5.0 Chloride 101 mmol/L 95-108 Co2 26.2 21-33 Glucose 94 mg/dL 70-105 BUN 24 High 6-22 Creatinine 0.7 mg/dL 0.5-1.4 BUN/Creatinin Ratio 34.3 High 8-20 Calcium 9.4 mg/dL 8.7-10.2 CBC Electronic ([facility]) 09/03/2001 WBC 5.3 4.8-10.8 RBC 4.84 4.2-5.4 Hemoglobin 14.8 g/dL 12.0-16.0 Hematocrit 42 % 35-47 Mean Corpuscular Vol 88 79-97 Mean Corpuscular Hemaglobin 31 27-31 Mean Corpuscular Hemo Concen 35 32-36 RDW 12 10.5-15 Platelets 240 CUMM 150-450 Mean Platelet Volume 8.1 7.4-10.4 Granulocytes 51.0 % 38-83 Lymphocytes 39.2 % 20-45 Monocytes 7.2 % 1-9 Eosinophil 1.6 0-6 Basophil% 1.0 0-2 Abs Lymphs 2.1 1.0-4.8 Abs Mononuclear 0.4 0-0.8 Abs Grans 2.6 1.5-7.7 Abs Eosinophils 0.1 0-0.6 Abs Basophils 0.1 0-0.2 Laboratory test finding 09/03/2001 Sed Rate 7 MM/HR 0-30 Laboratory test finding 07/22/2001 Valproic Acid 61.0 ug/ml 50 - 100 Liver Function ([facility]) 07/22/2001 Albumin 4.4 3.8-5.5 Alkaline Phosphatase 56 U/L 36-117 Bilirubin, Direct 0.1 mg/dL 0-0.6 Bilirubin, Total 0.3 mg/dL 0.2-1.3 Ast (Sgot) 16 5-34 Alt (SGPT) 14 10-40 Total Protein 7.1 g/dL 6.4-8.3 Bilirubin, Indirect 0.20 ml/dl 0.10-1.0 CBC With Diff ([facility]) 07/22/2001 WBC 6.7 3.6-9.6 Lymphocytes 47.2 % 20.5 - 51.1 Monocytes 5.9 % 1.7-9.3 Granulocytes 46.9 % 42.2 - 75.2 Lymphocytes 3.2 10^3/uL 0.7 - 4.9 Monocytes 0.4 10^3/uL 0.1 - 0.9 Granulocytes 3.1 10^3/uL 1.5 - 7.2 RBC 4.44 3.90-5.70 Hemoglobin 13.7 g/dL 12.1 - 17.2 Hematocrit 39.5 % 36.1 - 50.3 Mean Corpuscular Vol 88.8 82.2-97.4 Mean Corpuscular Hemaglobin 30.9 27.6-33.3 Mean Corpuscular Hemo Concen 34.7 33.0-34.8 RDW 13.4 11.6-13.7 Platelets 282 10^3/ul 150-400 Mean Platelet Volume 7.3 Low 7.4-10.4 Liver Function ([facility]) 03/23/2001 Total Protein 7.4 GM/DL 6.2-8.1 Albumin 4.1 3.6-5.4 Globulin 3.3 2-4 A/G Ratio 1.2 0.9-2 Total Bilirubin 0.2 mg/dL 0.1-1.0 Bilirubin, Direct 0.10 mg/dL 0.0-0.3 Bilirubin, Indirect 0.10 mg/dL 0.1-0.75 Alkaline Phosphatase 64 U/L 30-110 Alt (SGPT) 13 1-40 Ast (Sgot) 10 1-34 Protime/Inr (a/[facility]) 12/16/2000 Protime 12.1 SEC 10-14 Inr 1.0 0.9-1.1 Laboratory test finding 09/24/2000 Pyruvate 0.30 mg/dL 0.3-0.9 Laboratory test finding 09/24/2000 Lactic Acid Plasma 1.00 0.5-1.6 Laboratory test finding 08/09/2000 Complement C3 132.0 mg/dL 75 - 135 Complement C4 24.0 mg/dL 9 - 36 Complement: CH50 Classi SEE IMAGE REPORT Laboratory test finding 08/09/2000 Pyruvate SEE IMAGE REPORT [id number]. SEE IMAGE REPORT Protime 06/28/2000 Protime 12.2 SEC 10-14 Inr 1.0 0.9-1.1 [facility]ma-CBC With Manual Dif 06/28/2000 WBC 6.8 3.6-9.6 RBC 4.41 3.90-5.70 Hemoglobin 13.5 g/dL 12.1 - 17.2 Hematocrit 40.0 % 36.1 - 50.3 Mean Corpuscular Vol 90.6 82.2-97.4 Mean Corpuscular Hemaglobin 30.7 27.6-33.3 Mean Corpuscular Hemo Concen 33.9 33.0-34.8 RDW 12.4 11.6-13.7 Platelets 228 10^3/ul 150-400 Mean Platelet Volume 9.5 7.4-10.4 Neutrophils 72 Band 10 Lymph From [facility] 15 Monocytes 1 % Eosinophils 2 Basophils - Metamyelocytes - Myelocytes - Promyelocyte - Blast - Atypical Lymph - NRBC - Morphology NORMAL Comments - Laboratory test finding 04/12/2000 Throat Culture NEG Laboratory test finding 01/13/2000 Valproic Acid 58.1 ug/ml 50 - 100 Liver Function ([facility]) 01/12/2000 Albumin 4.3 3.8-5.5 Alkaline Phosphatase 52 U/L 39-130 Bilirubin, Direct 0.1 mg/dL 0-0.6 Bilirubin, Total 0.4 mg/dL 0.2-1.3 Ast (Sgot) 10 9-44 Alt (SGPT) 10 10-40 Total Protein 7.1 g/dL 6.3-8.1 Bilirubin, Indirect 0.30 ml/dl 0.10-1.0 CBC With Diff ([facility]) 01/12/2000 WBC 7.0 3.6-9.6 Lymphocytes 28.2 % 20.5 - 51.1 Monocytes 4.6 % 1.7 - 9.3 Granulocytes 67.2 % 42.2 - 75.2 Lymphocytes 2.0 10^3/uL 0.7 - 4.9 Monocytes 0.3 10^3/uL 0.1 - 0.9 Granulocytes 4.7 10^3/uL 1.5 - 7.2 RBC 4.47 3.90-5.70 Hemoglobin 13.8 g/dL 12.1 - 17.2 Hematocrit 41.0 % 36.1 - 50.3 Mean Corpuscular Vol 91.6 82.2-97.4 Mean Corpuscular Hemaglobin 30.8 27.6-33.3 Mean Corpuscular Hemo Concen 33.6 33.0-34.8 RDW 12.9 11.6-13.7 Platelets 253 10^3/ul 150-400 Mean Platelet Volume 8.5 7.4-10.4 Laboratory test finding 09/29/1999 Urine Culture MIXED WARREN SEEN Ua - Micro (a New) 09/29/1999 Appearance CLEAR LT YELLOW Glucose - Bilirubin - Ketones - SP Grav 1.010 Blood TRACE-LYSED PH 6.5 Protein - Urobil 0.2 Nitrite - Leukocytes - Hyaline - /Lpf Granular - /Lpf WBC'S 1-3 RBC'S 3-4 Mucus - /Lpf Epith MODERATE Bacteria 2+ Amorphous - /Lpf Crystals - /Lpf Comments OCC YEAST LIKE Laboratory test finding 04/11/1999 FSH 22.3 See Detail General Health Profile 04/11/1999 Alkaline Phosphatase 51 U/L 39-130 Bilirubin, Total 0.6 mg/dL 0.2-1.3 BUN 11 mg/dL 10-26 Calcium 8.7 mg/dL 7.4-9.2 Creatinine 0.6 mg/dL 0.6-1.4 Glucose 80 mg/dL 70 - 118 Ast Sgot 13 U/L 9-44 Total Protein 6.8 g/dL 6.3-8.1 Sodium 141 mEq/L 134-149 Potassium 4.4 mEq/L 3.6-5.5 Chloride 101 mEq/L 94-112 Co2 30 21-32 TSH 0.20 uIU/ML Low 0.3 - 4.5 CBC With Diff ([facility]) 04/11/1999 WBC 6.1 /Hpf 3.6 - 9.6 Lymphocytes 31.1 % 20.5 - 51.1 Monocytes 8.0 % 1.7 - 9.3 Granulocytes 60.9 % 42.2 - 75.2 Lymphocytes 1.9 10^3/uL 0.7 - 4.9 Monocytes 0.5 10^3/uL 0.1 - 0.9 Granulocytes 3.7 10^3/uL 1.5 - 7.2 RBC 4.52 /Hpf 3.90 - 5.70 Hemoglobin 13.8 g/dL 12.1 - 17.2 Hematocrit 41.7 % 36.1 - 50.3 Mean Corpuscular Vol 92.2 fl 82.2 - 97.4 Mean Corpuscular Hemaglobin 30.6 pg 27.6 - 33.3 Mean Corpuscular Hemo Concen 33.2 g/dL 33.0 - 34.8 RDW 13.5 % 11.6 - 13.7 Platelets 233 10^3/ul 202 - 386 Mean Platelet Volume 7.5 fl 7.4 - 10.4 Ua - Micro ([facility] Old) 04/11/1999 Appearance YEL CLEAR SP Grav 1.025 Esterase - Nitrite - pH 5.0 Protein - Glucose - Ketones - Urobil - Bilirubin - Blood MOD 2+ Hyaline - /Lpf Granular - /Lpf RBC'S 3-5 Mucus MOD AMT /Lpf Epith FEW Bacteria 1+ Amorphous - /Lpf Crystals - /Lpf Free T4/TSH Profile ([facility]) 07/25/1997 Free T4 1.0 ng/dL 0.7-1.8 TSH 0.3 0.3-4.5 1 RESULT VERIFIED BY REPEAT ANALYSIS 2 Source: WOUND Isolate #1: Acinetobacter baumanii Predominating ANTIBIOTIC ELLI Inter Cost Amoxicillin/CA 4 Resistant 4 Ampicillin 16 Resistant 3 Cefazolin >=64 Resistant 4 Ceftazidime 4 Susceptible 9 Ceftriaxone 16 Resistant 6 Cefuroxime - Axetil >=64 Resistant 5 Cefuroxime - Sodium >=64 Resistant 5 Cephalothin >=64 Resistant N/A Ciprofloxacin <=0.25 Susceptible PO 2, IV 4 Gentamicin <=1 Susceptible 3 Nalidixic Acid <=2 Susceptible 0 Tetracycline >=16 Resistant 1 Ticarcillin <=8 Susceptible 0 Tobramycin <=1 Susceptible 4 Trimethoprim/Sulfa <=20 Susceptible PO 1, IV 4 Levofloxacin <=0.25 Susceptible PO 2, IV 4 Nitrofurantoin >=512 Resistant 1, UR* --- COST CODES: The cost codes for the antibiotics reported provide the relative costs of these antibiotics per day of therapy. The higher the number, the more expensive the antibiotic is. NOTE: 'UR' indicates that the antibiotic is appropriate for the treatment of urinary tract infections only. --- If additional antimicrobial susceptibility test results for hospital inpatients are needed for antibiotics not listed on this report, please contact the Microbiology laboratory at [phone]. --- Isolate #2: Enterobacter cloacae Few colonies ANTIBIOTIC ELLI Inter Cost Cefazolin >=64 Resistant 4 Ceftazidime <=1 Susceptible 9 Ceftriaxone <=1 Susceptible 6 Cefuroxime - Axetil 16 Intermediate 5 Cefuroxime - Sodium 16 Intermediate 5 Cephalothin >=64 Resistant N/A Ciprofloxacin <=0.25 Susceptible PO 2, IV 4 Gentamicin <=1 Susceptible 3 Nalidixic Acid <=2 Susceptible 0 Tetracycline 4 Susceptible 1 Trimethoprim/Sulfa <=20 Susceptible PO 1, IV 4 Levofloxacin <=0.25 Susceptible PO 2, IV 4 Nitrofurantoin 32 Susceptible 1, UR* --- COST CODES: The cost codes for the antibiotics reported provide the relative costs of these antibiotics per day of therapy. The higher the number, the more expensive the antibiotic is. NOTE: 'UR' indicates that the antibiotic is appropriate for the treatment of urinary tract infections only. --- If additional antimicrobial susceptibility test results for hospital inpatients are needed for antibiotics not listed on this report, please contact the Microbiology laboratory at [phone]. --- 3 Source: WOUND RARE EPI, FEW WBC, MANY GRAM NEG RODS, 4 TnI INTERPRETATION <0.06 NG/ML NOT SUPPORTIVE OF DIAGNOSIS OF MD 0.06-0.5 NG/ML INDETERMINATE; SUGGEST SERIAL STUDIES IF CLINICALLY INDICATED. >0.5 NG/ML CONSISTENT WITH DIAGNOSIS OF MD 5 RECOMMENDED INR FOR PATIENTS ON ORAL ANTICOAGULANTS PROPHYLAXIS: 2.0-3.0 TREATMENT OF THROMBOSIS 2.0-3.0 PREVENTION OF EMBOLISM 2.0-3.0 PREVENTION OF EMBOLISM FROM PROSTHETIC HEART VALVES 2.5-3.5 6 CBC AND SMEAR REVIEWED. INVERTED PMN/LYMPH RATIO NOTED. NO BLASTS SEEN. Procedures Date CPT Code Description Status Comment 02/16/2016 Mammogram Completed 02/15/2015 Colonoscopy Completed [facility]: advised f/up colonoscopy 10 years 07/09/2004 75965 Pulse Oximetry Completed 07/15/2000 66898 Electrocardiogram Complete Completed 03/27/1999 12580 Electrocardiogram Complete Completed Encounters Type Date Location Provider CPT E/M Dx Office Visit 03/24/2005 1:00p Main Office [address] [address] 847.0 Office Visit 01/23/2005 3:00p Main Office Alecia Desirae, [employer] 82652 692.9 Office Visit 01/03/2005 10:40a Main Office [place] M.D. 46314 461.9 995.3 Office Visit 12/26/2004 1:15p Main Office Alecia Desirae, [employer] 11532 461.9 244.9 272.4 Office Visit 10/29/2004 1:30p Main Office Alecia Desirae, [employer] 82865 477.9 Office Visit 09/04/2004 1:00p [facility] Alecia Desirae, [facility] 82027 388.70 477.9 Office Visit 07/09/2004 1:15p [facility] Alecia Desirae, [facility] 50250 490 272.9 Office Visit 07/03/2004 1:00p [facility] Office Aleciaeric MarteDesirae, [employer] 25094 401.9 719.46 239.2 611.71 780.79 435.9 Office Visit 04/25/2004 4:30p Main Office Alecia Desirae, [facility] 78710 490 244.9 Office Visit 04/23/2004 4:00p Main Office Alecia Desirae, [employer] 96811 486 Office Visit 02/26/2004 11:00a [facility] Office Anjelica Marquez, [facility] 67683 465.9 Office Visit 02/21/2004 1:45p Main Office Anjelica Marquez, [facility]C 53406 465.9 110.5 Office Visit 01/31/2004 9:30a [facility] Alecia Desirae, [employer] 01210 719.46 Office Visit 01/16/2004 9:15a [facility] Alecia Desirae, [employer] 52097 780.79 443.9 300.00 V18.0 V77.1 Office Visit 12/13/2003 9:15a [facility] Alecia Desirae, [employer] 39107 780.79 Office Visit 11/08/2003 9:45a [facility] Alecia Desirae, [employer] 76566 490 780.79 Office Visit 09/21/2003 3:00p Main Office Alecia Desirae, [employer] 79785 682.9 Office Visit 07/05/2003 11:30a [facility] Office Alecia Desirae, [facility] 59003 493.10 277.9 Office Visit 06/22/2003 10:45a [facility] Office Anjelica Marquez [employer]C 10157 490 Office Visit 03/29/2003 9:15a [facility] Office Alecia Desirae, [facility] 81106 244.9 Office Visit 12/06/2002 4:00p [facility] Office Alecia Desirae, [facility] 78137 311 242.00 Office Visit 10/05/2002 9:00a Main Office Alecia Desirae, [facility] 70273 401.1 240.9 286.9 Office Visit 08/31/2002 9:00a [facility] Office Alecia Desirae, [facility] 92673 242.00 286.9 Office Visit 08/02/2002 9:15a [facility] Office Alecia Desirae, [facility] 91370 242.00 Office Visit 06/29/2002 10:15a Main Office Alecia Desirae, [facility] 02684 780.79 788.5 Office Visit 06/16/2002 3:00p Main Office Bruce Jack M.D. 52418 240.9 Office Visit 04/19/2002 9:30a [facility] Alecia Desirae, [facility] 42691 786.52 786.59 780.79 Office Visit 03/27/2002 1:00p Main Office Alecia Desirae, [facility] 52611 924.01 Office Visit 02/23/2002 9:00a [facility] Office Alecia Desirae, [facility] 48153 535.00 Office Visit 01/23/2002 1:45p Main Office Alecia Desirae, [facility] 15423 461.9 Office Visit 11/04/2001 2:15p Main Office Alecia Desirae, [employer] 01687 Office Visit 10/03/2001 9:30a Main Office Alecia Desirae, [employer] 40728 Office Visit 09/16/2001 9:00a [facility] Office Alecia Desirae, [facility] 07618 Office Visit 05/12/2001 2:00p [facility] Office Alecia Desirae, [employer] 42386 Office Visit 03/14/2001 2:00p Main Office Alecia Desirae, [facility] 07421 Office Visit 03/11/2001 4:00p Main Office Anjelica Marquez, Afnp[facility]C 97829 Office Visit 10/25/2000 1:15p Main Office Alecia Desirae, [employer] 52861 Office Visit 09/24/2000 9:00a Main Office Alecia Desirae, [employer] 47686 Office Visit 09/06/2000 1:45p Main Office Alecia Desirae, [employer] 74992 Office Visit 08/09/2000 1:45p Main Office Alecia Desirae, [employer] 82904 Office Visit 06/11/2000 3:15p Northeast Office Alecia Desirae, [employer] 51151 Office Visit 05/03/2000 1:15p Main Office Alecia Desirae, [employer] [address]25 Office Visit 04/12/2000 1:30p Main Office Alecia Desirae, [employer] 10325 Office Visit 03/15/2000 1:00p Main Office Alecia Desirae, [employer] 45629 Office Visit 02/02/2000 1:15p Main Office Alecia Desirae, [employer] 59367 Office Visit 01/26/2000 1:00p Main Office Alecia Desirae, [employer] 18477 Office Visit 01/05/2000 1:45p Main Office Alecia Desirae, [employer] 85016 Office Visit 12/08/1999 1:00p Main Office Alecia Desirae, [employer] 49285 Office Visit 11/03/1999 1:15p Main Office Alecia Desirae, [employer] 54474 Office Visit 09/29/1999 2:00p Main Office Alecia Desirae, [employer] 27016 Plan of Care 03/08/2017 - Naveen Ly, MDR10.30 Lower abdominal pain, unspecifiedComments:Let's get the advanced imaging and go from there.
[2017-03-27 14:43] VITALS: BP 132/65
--- NOTE | 2017-03-27 15:18 | UC ---
Minor Trauma HPI - HPI Summary HPI Summary: 71 yo female with 10/10 hip pain s/p fall 5 days ago states fall with due to her right knee buckling had right knee replacement due to WC injury yrs ago pain is 10/10 depsite opana points to inguinal crease as the area of most pain - History of Current Complaint Chief Complaint: UCLowerExtremity Stated Complaint: SEVERE RIGHT HIP PAIN S/P FALL 5 DAYS AGO Time Seen by Provider: 03/27/17 15:08 Hx Obtained From: Patient Hx Last Menstrual Period: n/a Onset/Duration: Sudden Onset Severity Initially: Severe Severity Currently: Severe Pain Intensity: 10 Pain Scale Used: 0-10 Numeric Mechanism Of Injury: Fall From A Standing Position Aggravating Factor(s): Ambulation Alleviating Factor(s): Nothing - Allergies/Home Medications Allergies/Adverse Reactions: Allergies Allergy/AdvReac Type Severity Reaction Status Date / Time MS Cefaclor [From Ceclor] Allergy Intermediate Rash Verified 03/27/17 14:43 MS Celecoxib [From Celebrex] Allergy Intermediate GI Upset Verified 03/27/17 14: 43 MS Cephalexin [From Keflex] Allergy Intermediate Rash Verified 03/27/17 14:43 MS Codeine [Codeine] Allergy Intermediate Rash Verified 03/27/17 14:43 MS Cyclobenzaprine Allergy Intermediate Rash Verified 03/27/17 14:43 [Cyclobenzaprine] MS Erythromycin Allergy Intermediate Rash Verified 03/27/17 14:43 [Erythromycin] MS Iodinated Contrast Media Allergy Intermediate Rash Verified 03/27/17 14:43 [CONTRAST DYE] MS Levofloxacin Allergy Intermediate Rash Verified 03/27/17 14:43 [From Levaquin] MS Morphine [Morphine] Allergy Intermediate Rash Verified 03/27/17 14:43 MS Oxycodone [Oxycodone] Allergy Intermediate Rash Verified 03/27/17 14:43 MS Penicillin V Allergy Intermediate Rash Verified 03/27/17 14:43 [Penicillin V] MS Sulfa Antibiotics Allergy Intermediate Rash Verified 03/27/17 14:43 [Sulfa Antibiotics] MS Tetanus Toxoid Allergy Intermediate Rash Verified 03/27/17 14:43 [Tetanus Toxoid] MS Tetracyclines Allergy Intermediate Rash Verified 03/27/17 14:43 [Tetracyclines] MS Azithromycin Allergy Rash Verified 03/27/17 14:43 [From Zithromax] Home Medications: Home Medications Diclofenac 1% GEL (NF) [Voltaren 1% GEL (NF)] 1 applic TOPICAL 03/27/17 [History ] PMH/Surg Hx/FS Hx/Imm Hx Previously Healthy: Yes Endocrine History: Diabetes, Dyslipidemia Cardiovascular History: Hypertension - Surgical History Surgical History: Yes Surgery Procedure, Year, and Place: 1974 Gall bladder\ hysterectomy & APPENDECTOMY/RT KNEE BIOPSY; cervical spine - Family History Known Family History: Positive: Hypertension - Social History Alcohol Use: None Substance Use Type: None, Prescribed Smoking Status (MU): Former Smoker Type: Cigarettes Amount Used/How Often: 3 PACKS A DAY Have You Smoked in the Last Year: No When Did the Patient Quit Smoking/Using Tobacco: 2003 - Immunization History Most Recent Influenza Vaccination: 2014 Most Recent Tetanus Shot: allergy Most Recent Pneumonia Vaccination: has had in plast 10 years Review of Systems Constitutional: Negative Skin: Negative Eyes: Negative ENT: Negative Respiratory: Negative Cardiovascular: Negative Gastrointestinal: Negative Genitourinary: Negative Motor: Negative Neurovascular: Negative Musculoskeletal: Arthralgia Neurological: Negative Psychological: Negative Is Patient Immunocompromised?: No All Other Systems Reviewed And Are Negative: Yes Physical Exam Triage Information Reviewed: Yes Appearance: Well-Appearing, Pain Distress Vital Signs: Initial Vital Signs Temp 96.6 F 03/27/17 14:40 Pulse 77 03/27/17 14:40 Resp 18 03/27/17 14:40 BP 132/65 03/27/17 14:40 Pulse Ox 97 03/27/17 14:40 Vital Signs Reviewed: Yes Eyes: Positive: Conjunctiva Clear ENT: Negative: Hearing grossly normal, Pharynx normal, Pharyngeal erythema, Nasal congestion, Nasal drainage Neck: Positive: Supple, Nontender Respiratory: Positive: Lungs clear, Normal breath sounds, No respiratory distress Cardiovascular: Positive: RRR, No Murmur Musculoskeletal: Positive: Other: - pain with internal/external rotation of right hip no fore shortening, antalgic gait Neurological: Positive: Alert Diagnostics - Radiology No standard instances Xray Interpretation: No Acute Changes - right hip and LS Radiology Interpretation Completed By: Radiologist Re-Evaluation - Re-Evaluation First Eval Change: Improved - some improvement with toradol Minor Trauma Course/Dx - Differential Dx/Diagnosis Provider Diagnoses: right hip pain of uncertain cause. back contusion/strain Discharge - Discharge Plan Condition: Stable Disposition: [facility]ANS [facility] Referrals: Naveen Ly MD [Primary Care Provider] - Additional Instructions: We have no CT scanner today I spoke to Aliza Reyes NP at the [facility] and they are expecting you
[2017-03-27] MEDS ORDERED: Ketorolac INJ* 30 MG/ML 1 ML VIAL IM ONE (15:34)
--- NOTE | 2017-03-27 15:47 | RAD ---
Indication: RIGHT hip pain post fall 5 days ago. Comparison: March 16, 2017 CT. Technique: AP pelvis and AP and frog-leg lateral views RIGHT hip. Report: The RIGHT hip is normally located. No pelvic or proximal femur fracture evident. Preserved hip joint spaces. Unremarkable sacroiliac joints and pubic symphysis. Peripheral vascular calcifications and pelvic phleboliths. Unremarkable soft tissue contours accounting for body habitus. IMPRESSION: No radiographic evidence for RIGHT hip fracture. As x-rays may be negative with nondisplaced hip fracture if there is persistent clinical concern MRI or in setting of contraindication to MRI or limitation in emergent access to MRI CT would be suggested.
--- NOTE | 2017-03-27 15:49 | RAD ---
Indication: RIGHT lower extremity pain post fall. Comparison: March 16, 2017 CT. Technique: AP, lateral, and oblique views lumbar sacral spine. Report: Alignment is anatomic. No cortical disruption or trabecular impaction to indicate a vertebral body fracture. Oblique views without evidence for spondylolysis. Multilevel minimal vertebral endplate osteophytosis. Mild L4-L5 and moderate L5-S1 disc space narrowing without change. Multilevel facet joint osteoarthritis most prominent at L4-L5 and L5-S1. Unremarkable soft tissue contours. Atherosclerotic calcification of the abdominal aorta and iliac arteries. IMPRESSION: No evidence for lumbar sacral spine fracture or traumatic malalignment. Degenerative spondylosis and facet joint osteoarthritis.
== END 2017-03-27 16:11 | disposition short-term general hospital (02) ==
LOC: UCCORT 13:17
DX: M25.551 Pain in right hip (principal); S20.229A Contusion of unspecified back wall of thorax, initial encounter; S29.012A Strain of muscle and tendon of back wall of thorax, initial encounter; W19.XXXA Unspecified fall, initial encounter; Y93.9 Activity, unspecified; Y92.9 Unspecified place or not applicable; F17.210 Nicotine dependence, cigarettes, uncomplicated; Z96.651 Presence of right artificial knee joint
CPT/HCPCS: 72110; 96372; 99212; G0463; J1885

== ENCOUNTER 2017-03-29 18:56 | Emergency (ER) | payer OTHER ==
[2017-03-29] MEDS ORDERED: oxyCODONE/Acetamin 5/325 MG* TAB PO ONE (23:21)
--- NOTE | 2017-03-30 02:15 | ED ---
Irma Coello Thomas, scribed for Taina Layton MD on 03/29/17 at 2338 . Lower Extremity - HPI Summary HPI Summary: The patient presents with back pain, right ankle pain, and hip pain after she fell two days ago. The additionally complains of numbness to her fingers. The patient had a prior fall two weeks, for which she was seen at [facility]. - History of Current Complaint Chief Complaint: EDTraumaMultiple Stated Complaint: FALL Time Seen by Provider: 03/29/17 22:53 Hx Obtained From: Patient Hx Last Menstrual Period: n/a Mechanism Of Injury: Fall From A Standing Position Onset of Pain: Days - 2 Onset/Duration: Still Present Severity Currently: Severe Pain Intensity: 10 Pain Scale Used: 0-10 Numeric Timing: Constant Location: Is Discrete @ - back, right ankle, hip Associated Signs And Symptoms: Negative: Fever Aggravating Factor(s): Movement Alleviating Factor(s): Nothing - Allergies/Home Medications Allergies/Adverse Reactions: Allergies Allergy/AdvReac Type Severity Reaction Status Date / Time MS Cefaclor [From Ceclor] Allergy Intermediate Rash Verified 03/27/17 14:43 MS Celecoxib [From Celebrex] Allergy Intermediate GI Upset Verified 03/27/17 14: 43 MS Cephalexin [From Keflex] Allergy Intermediate Rash Verified 03/27/17 14:43 MS Codeine [Codeine] Allergy Intermediate Rash Verified 03/27/17 14:43 MS Cyclobenzaprine Allergy Intermediate Rash Verified 03/27/17 14:43 [Cyclobenzaprine] MS Erythromycin Allergy Intermediate Rash Verified 03/27/17 14:43 [Erythromycin] MS Iodinated Contrast Media Allergy Intermediate Rash Verified 03/27/17 14:43 [CONTRAST DYE] MS Levofloxacin Allergy Intermediate Rash Verified 03/27/17 14:43 [From Levaquin] MS Morphine [Morphine] Allergy Intermediate Rash Verified 03/27/17 14:43 MS Oxycodone [Oxycodone] Allergy Intermediate Rash Verified 03/27/17 14:43 MS Penicillin V Allergy Intermediate Rash Verified 03/27/17 14:43 [Penicillin V] MS Sulfa Antibiotics Allergy Intermediate Rash Verified 03/27/17 14:43 [Sulfa Antibiotics] MS Tetanus Toxoid Allergy Intermediate Rash Verified 03/27/17 14:43 [Tetanus Toxoid] MS Tetracyclines Allergy Intermediate Rash Verified 03/27/17 14:43 [Tetracyclines] MS Azithromycin Allergy Rash Verified 03/27/17 14:43 [From Zithromax] PMH/Surg Hx/FS Hx/Imm Hx Endocrine/Hematology History: Reports: Hx Diabetes, Hx Thyroid Disease Cardiovascular History: Reports: Hx Hypertension Denies: Hx Pacemaker/ICD, Other Cardiovascular Problems/Disorders Respiratory History: Reports: Hx Asthma - allergies Denies: Hx Chronic Obstructive Pulmonary Disease (COPD), Other Respiratory Problems/Disorders GI History: Reports: Hx Gastroesophageal Reflux Disease Denies: Hx Ulcer History: Reports: Hx Kidney Stones - IN THE PAST Musculoskeletal History: Reports: Hx Arthritis - ALL OVER Denies: Other Musculoskeletal History Sensory History: Reports: Hx Cataracts - BEGINNING STAGES, Hx Contacts or Glasses - GLASSES Denies: Hx Hearing Aid Opthamlomology History: Reports: Hx Cataracts - BEGINNING STAGES, Hx Contacts or Glasses - GLASSES Neurological History: Denies: Other Neuro Impairments/Disorders Psychiatric History: Reports: Hx Depression - IN THE PAST Denies: Hx Panic Disorder - Cancer History Cancer Type, Location and Year: skin; thyroid - Surgical History Surgery Procedure, Year, and Place: 1974 Gall bladder\ hysterectomy & APPENDECTOMY/RT KNEE BIOPSY; cervical spine Hx Anesthesia Reactions: Yes - DIFF WAKING Infectious Disease History: No Infectious Disease History: Denies: Hx Clostridium Difficile, Hx Hepatitis, Hx Human Immunodeficiency Virus (HIV), Hx of Known/Suspected MRSA, Hx Shingles, Hx Tuberculosis, Hx Known/ Suspected VRE, Hx Known/Suspected VRSA, History Other Infectious Disease, Traveled Outside the [place] in Last 30 Days - Family History Known Family History: Positive: Hypertension - Social History Alcohol Use: None Substance Use Type: Reports: None, Prescribed Smoking Status (MU): Former Smoker Type: Cigarettes Amount Used/How Often: 3 PACKS A DAY Have You Smoked in the Last Year: No Review of Systems Negative: Fever Positive: Other - Back pain, right ankle pain, hip pain Positive: Numbness - fingers All Other Systems Reviewed And Are Negative: Yes Physical Exam - Summary Physical Exam Summary: VITAL SIGNS: Reviewed. GENERAL: Patient is a well-developed and nourished FEMALE who is lying comfortable in the stretcher. Patient is not in any acute respiratory distress. HEAD AND FACE: No signs of trauma. No ecchymosis, hematomas or skull depressions. No sinus tenderness. EYES: PERRLA, EOMI x 2, No injected conjunctiva, no nystagmus. EARS: Hearing grossly intact. Ear canals and tympanic membranes are within normal limits. MOUTH: Oropharynx within normal limits. NECK: Supple, trachea is midline, no adenopathy, no JVD, no carotid bruit, no c- spine tenderness, neck with full ROM. CHEST: Symmetric, no tenderness at palpation LUNGS: Clear to auscultation bilaterally. No wheezing or crackles. CVS: Regular rate and rhythm, S1 and S2 present, no murmurs or gallops appreciated. ABDOMEN: Soft, non-tender. No signs of distention. No rebound no guarding, and no masses palpated. Bowel sounds are normal. EXTREMITIES: She is tender to her right hip. There is decreased ROM of the hip secondary to pain. She is tender to the right ankle. Otherwise, FROM in all major joints, no edema, no cyanosis or clubbing. NEURO: Alert and oriented x 3. No acute neurological deficits. Speech is normal and follows commands. SKIN: Dry and warm Triage Information Reviewed: Yes Vital Signs On Initial Exam: Initial Vitals Temp Pulse Resp BP Pulse Ox 97.3 F 85 18 94/72 98 03/29/17 19:20 03/29/17 19:20 03/29/17 19:20 03/29/17 19:20 03/29/17 19:20 Vital Signs Reviewed: Yes Diagnostics - Vital Signs Vital Signs Temp Pulse Resp BP Pulse Ox 03/29/17 21:02 98.5 F 90 140/57 100 03/29/17 19:20 97.3 F 85 18 94/72 98 - Laboratory Lab Statement: Any lab studies that have been ordered have been reviewed, and results considered in the medical decision making process. - Radiology XR Ankle Xray Interpretation: No Acute Changes - Negative for acute findings. Radiology Interpretation Completed By: ED Physician - CT CT Pelvis CT Interpretation: No Acute Changes - No Pelvic fracture. Dr. Layton has reviewed this report. CT Interpretation Completed By: Radiologist Lower Extremity Course/Dx - Course Assessment/Plan: The patient presents with back pain, right ankle pain, and hip pain after she fell two days ago. The patient was given [place]. XR Ankle is negative. CT Pelvis is negative for fracture. The patient will be discharged home with confusion and right hip pain. - Diagnoses Provider Diagnoses: Right hip pain, Contusion Discharge - Discharge Plan Condition: Stable Disposition: HOME Prescriptions: oxyCODONE/Acetamin 5/325 MG* [Percocet 5/325 TAB*] 1 tab PO Q6H PRN #14 tab MDD 4 PRN Reason: Pain Patient Education Materials: Contusion in Adults (ED), Hip Pain (ED) Referrals: Naveen Ly MD [Primary Care Provider] - 3 Days Additional Instructions: Follow up with your primary care physician in three days. Return to the emergency department for any new or worsening symptoms. The documentation as recorded by the Irma osman Thomas accurately reflects the service I personally performed and the decisions made by , Taina Layton MD.
[2017-03-30 02:26] VITALS: BP 143/70
--- NOTE | 2017-03-30 07:49 | RAD ---
INDICATION: Right ankle injury. TECHNIQUE: 3 views of the right ankle were obtained. FINDINGS: The bones are in normal alignment. No fracture is seen. There is mild to moderate osteoarthritic change in the tibiotalar joint. IMPRESSION: NO EVIDENCE FOR FRACTURE.
--- NOTE | 2017-03-30 08:00 | RAD ---
HISTORY: Fall, right-sided hip pain COMPARISONS: None TECHNIQUE: Multiple contiguous axial CT images are obtained of the pelvis, with coronal and sagittal multiplanar reconstructions, without intravenous contrast administration. FINDINGS: BONE DENSITY: Normal. BONES: There is no displaced fracture. JOINTS: There is mild osteoarthritis of the hips and SI joints bilaterally. MUSCULATURE: Unremarkable ALIGNMENT: There is no dislocation. SOFT TISSUES: There is calcification of the distal abdominal aorta and its branches. OTHER FINDINGS: Degenerative changes are noted of the spine. IMPRESSION: NO ACUTE OSSEOUS INJURY. IF SYMPTOMS PERSIST, RECOMMEND REPEAT IMAGING.
== END 2017-03-30 02:25 | disposition home or self-care (01) ==
LOC: ED 18:56
DX: S70.01XA Contusion of right hip, initial encounter (principal); M25.571 Pain in right ankle and joints of right foot; M25.551 Pain in right hip; Z86.79 Personal history of other diseases of the circulatory system; Z88.0 Allergy status to penicillin; Z87.891 Personal history of nicotine dependence; M54.9 Dorsalgia, unspecified; W19.XXXA Unspecified fall, initial encounter; Y92.9 Unspecified place or not applicable
CPT/HCPCS: 72192; 99282; A9270-GY

== ENCOUNTER 2018-06-14 10:57 | Emergency (ER) | payer MEDICARE, MEDICAID ==
--- OUTSIDE RECORDS SUMMARY | 2018-06-14 11:17 | XMS REPORT | Continuity of Care Document ---
:1945 External Reference #:[id number] Author Name Alena Gant Care Team Providers Name Role Phone Alin Hamlin DO Primary Care Physician Unavailable Payers Date Identification Numbers Payment Provider Subscriber Policy Number: [id number] Medicare Blue P[employer] Number: [id number] [address] [address] PayID: [id number] [place] [address] Policy Number: [id number] Medicaid [employer] Name: 1 [address] PayID: [id number] [place] [address] Effective: 2005 Policy Number: [id number] [facility] Insurance [facility] [employer] Onset: 2005 Group Number: [id number] PayID: [id number] [address] Advance Directives Description No Information Available Problems Active Problems Provider Date Cervical spondylosis with myelopathy Jaswant Helton M.D. Onset: 08/22/2014 Mastoiditis Jaswant Helton M.D. Onset: 08/22/2014 Cervical spondylosis without myelopathy Julio César Chirinos M.D. Onset: 10/15/2014 Shoulder joint pain Julio César Chirinos M.D. Onset: 10/29/2014 Convalescence after surgery Julio César Chirinos M.D. Onset: 12/19/2014 Neck pain Julio César Chirinos M.D. Onset: 08/23/2017 Sprain of shoulder and upper arm Sebastian Tamez MD Onset: 09/07/2017 Pain in limb Billy Ramos MD Onset: 11/04/2017 Skin sensation disturbance Billy Ramos MD Onset: 11/04/2017 Family History Date Family Member(s) Observation Comments General Heart Disease General Cancer Social History Type Date Description Comments Sex Unknown Lives With Male Partner Occupation Retired Occupation Disabled Occupation bookeeper Hand Dominance Left-handed ETOH Use Denies alcohol use Tobacco Use Start: Unknown End: Patient is a former smoker Unknown Recreational Drug Use Denies Drug Use Smoking Status Reviewed: 06/08/18 Patient is a former smoker Exercise Type/Frequency Does not exercise Allergies, Adverse Reactions, Alerts Active Allergies Reaction Severity Comments Date ALL Cillins 08/22/2014 Tetanus Toxoids 08/22/2014 Sulfa Antibiotics 08/22/2014 Contrast Dye 08/22/2014 Naproxen 08/23/2017 Medications Active Medications SIG Qnty Indications Ordering Date Provider Chlorthalidone 1 by mouth every Unknown 25mg Tablets day Metaxalone take 1 tablet 3 Unknown 800mg Tablets times a day Valsartan 1 by mouth every Unknown 80mg Tablets day Furosemide Boubacar Alin 20mg Tablets DO Ken Lyrica q 8 hours Unknown 25mg Capsules Ferrous Sulfate 1 by mouth every Unknown 325mg day Tablets Levothyroxine Sodium 1 by mouth every Unknown 50mg day Tablets Spironolactone 1 qd Sopjuanisk, Alin 25mg Tablets DO Ken Valsartan-Hydrochloroth Sopjuanisk, Alin iazide DO Ken 160-25mg Tablets Magnesium Oxide Take Two Tablets Unknown By Mouth Every 400(241.3Mg) mg Tablets Evening For Low Magnesium Aspirin 81 Low Dose 1 by mouth every Unknown 81mg day Chewtabs Metformin HCL 1 bid Sopchak, Alin 1000mg DO Ken Tablets Atorvastatin Calcium Take One Tablet By Unknown 40mg Mouth Every Night Tablets Fluoxetine HCL one every morning Sopjuanisk, Alin 20mg DO Ken Capsules Oxymorphone HCL ER Take One Tablet By Unknown 10mg Mouth Every 12 Tablets ER 12HR Hours as Directed Maximum Daily Dose Nystatin-Triamcinolone apply small amount Unknown on affected areas 094382-1.1Unit/GM-% twice a day x 5 Cream days History Medications Valium take 1 tab by 1tabs Keny Barriga, 09/10/2017 - 5mg Tablets mouth 1 hour M.D. 06/07/2018 prior to scan. generic ok Naproxen Sodium 1 by mouth 60tabs Z48.89 Julio César Candis, 10/15/2014 - 550mg Tablets twice a day M.D. 08/23/2017 after meals after medrol completed Methylprednisolone (Peter) take as 1pack 721.0 Julio César Chirinos, 10/15/2014 - 4mg directed M.D. 10/29/2014 Tablets Valium 1 by mouth 2 2tabs Jaswant Helton, 08/22/2014 - 5mg Tablets hours prior to M.D. 10/15/2014 mri may take one more every 1 hour as needed anxiety Amlodipine Besylate 1 by mouth Unknown - 5mg every day 06/07/2018 Tablets Triamterene-HCTZ 1 qd Unknown - 75-50mg 06/07/2018 Tablets Neurontin 1 am ,1 Unknown - 100mg afternoon & 3 10/30/2017 at bedtime Opana by mouth four Unknown - 10mg Tablets times a day as 11/29/2017 needed Potassium Chloride Unknown - 11/29/2017 10Meq/100ML Solution Synthroid 1 by mouth Unknown - 25mcg Tablets every day 11/04/2017 Vasotec 1 qd Unknown - 10mg Tablets 06/07/2018 Tizanidine HCL 1 by mouth Unknown - 4mg Capsules twice daily 06/07/2018 Medications Administered in Office Medication SIG Qnty Indications Ordering Provider Date Triamcinolone (Kenalog) Sebastian Tamez MD 09/07/2017 Injection Immunizations Description No Information Available Vital Signs Date Vital Result Comment 06/08/2018 9:26am Height 64 inches 5'4" Weight 180.00 lb Heart Rate 78 /min BP Systolic Sitting 120 mmHg BP Diastolic Sitting 72 mmHg Respiratory Rate 17 /min BMI (Body Mass Index) 30.9 kg/m2 03/22/2018 9:10am Height 64 inches 5'4" Weight 191.00 lb Heart Rate 69 /min BP Systolic Sitting 110 mmHg large adult cuff left arm BP Diastolic Sitting 60 mmHg large adult cuff left arm Body Temperature 97.8 F O2 % BldC Oximetry 96 % at rest on room air BMI (Body Mass Index) 32.8 kg/m2 12/30/2017 9:18am Height 64 inches 5'4" Weight 187.25 lb Heart Rate 70 /min BP Systolic Sitting 118 mmHg BP Diastolic Sitting 70 mmHg BMI (Body Mass Index) 32.1 kg/m2 11/04/2017 9:32am Height 64 inches 5'4" Weight 181.00 lb BP Systolic Sitting 112 mmHg BP Diastolic Sitting 60 mmHg BMI (Body Mass Index) 31.1 kg/m2 10/28/2017 2:29pm Height 64 inches 5'4" Weight 184.00 lb BP Systolic 122 mmHg BP Diastolic 60 mmHg Respiratory Rate 18 /min Pain Level 0 BMI (Body Mass Index) 31.6 kg/m2 09/24/2017 8:00am Height 64 inches 5'4" Weight 184.00 lb BP Systolic 128 mmHg BP Diastolic 68 mmHg Respiratory Rate 20 /min Pain Level 6 BMI (Body Mass Index) 31.6 kg/m2 09/07/2017 2:29pm Height 64 inches 5'4" Weight 184.00 lb BP Systolic 119 mmHg BP Diastolic 82 mmHg Respiratory Rate 16 /min Pain Level 8 BMI (Body Mass Index) 31.6 kg/m2 08/23/2017 10:04am Height 64 inches 5'4" Weight 191.00 lb BP Systolic Sitting 110 mmHg BP Diastolic Sitting 70 mmHg Pain Level 10 BMI (Body Mass Index) 32.8 kg/m2 01/30/2015 3:39pm Height 64 inches 5'4" Weight 191.00 lb Heart Rate 78 /min BP Systolic Sitting 138 mmHg BP Diastolic Sitting 80 mmHg Pain Level 0 BMI (Body Mass Index) 32.8 kg/m2 12/19/2014 2:11pm Height 64 inches 5'4" Weight 191.00 lb Heart Rate 82 /min BP Systolic Sitting 140 mmHg BP Diastolic Sitting 80 mmHg Body Temperature 98.8 F Pain Level 1 neck BMI (Body Mass Index) 32.8 kg/m2 11/22/2014 9:51am Height 64 inches 5'4" Weight 191.00 lb Heart Rate 76 /min BP Systolic Sitting 140 mmHg BP Diastolic Sitting 78 mmHg Pain Level 10 neck BMI (Body Mass Index) 32.8 kg/m2 10/29/2014 9:51am Height 64 inches 5'4" Weight 186.00 lb Heart Rate 76 /min BP Systolic Sitting 136 mmHg BP Diastolic Sitting 80 mmHg Pain Level 8 neck/R shoulder BMI (Body Mass Index) 31.9 kg/m2 10/15/2014 1:51pm Height 64 inches 5'4" Weight 186.00 lb Heart Rate 60 /min BP Systolic Sitting 122 mmHg BP Diastolic Sitting 72 mmHg Pain Level 10 neck/R shoulder BMI (Body Mass Index) 31.9 kg/m2 09/11/2014 1:37pm Height 64 inches 5'4" Weight 180.00 lb Pain Level 10 BMI (Body Mass Index) 30.9 kg/m2 08/22/2014 2:13pm Height 64 inches 5'4" Weight 180.00 lb Heart Rate 69 /min BP Systolic 142 mmHg BP Diastolic 73 mmHg Respiratory Rate 18 /min Body Temperature 98.3 F Pain Level 8 BMI (Body Mass Index) 30.9 kg/m2 Results Test Date Facility Test Result H/L Range Note Laboratory test 12/11/2014 [facility] Point of Care 145 mg/dL High 74-106 [address] [place] [address] [phone] CBC No Diff 12/04/2014 [facility] White Blood 9.6 10^3/uL N 4.8-10.[address] [place] [address] [phone] Red Blood Count 4.13 10^6/uL N 4.0-5.4 Hemoglobin 12.3 g/dL N 12.0-16.0 Hematocrit 38 % N 35-47 Mean Corpuscular Volume 92 fL N 80-97 Mean Corpuscular Hemoglobin 30 pg N 27-31 Mean Corpuscular HGB Conc 32 g/dL N 31-36 Red Cell Distribution Width 14 % N 10.5-15 Platelet Count 348 10^3/uL N 150-450 Mean Platelet Volume 8 um3 N 7.4-10.4 Basic Metabolic Panel 12/04/2014 [facility] Sodium 139 mmol/L N 133-[address] [place] [address] [phone] Potassium 4.8 mmol/L N 3.5-5.0 Chloride 102 mmol/L N 101-111 Co2 Carbon Dioxide 31 mmol/L N 22-32 Anion Gap 6 mmol/L N 2-11 Glucose 83 mg/dL N 70-100 Blood Urea Nitrogen 26 mg/dL High 6-24 Creatinine 0.85 mg/dL N 0.51-0.95 BUN/Creatinine Ratio 30.6 High 8-20 Calcium 9.7 mg/dL N 8.6-10.3 Egfr Non- 66.9 N >60 Egfr 86.1 N >60 3 1 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 The National Kidney Disease Education Program (NKDEP) does not endorse the use of the MDRD equation for patients that are not between the ages of 18 and 70, are , have extremes of body size, muscle mass, or nutritional status, or are non- or non-. According to the National Kidney Foundation, irrespective of diagnosis, the stage of the disease is based on the level of kidney function: Stage Description GFR(mL/min/1.73 m(2)) 1 Kidney damage with normal or decreased GFR 90 2 Kidney damage with mild decrease in GFR 60-89 3 Moderate decrease in GFR 30-59 4 Severe decrease in GFR 15-29 5 Kidney failure <15 (or dialysis) Procedures Date Code Description Status 03/15/2018 92906 Nerve Conduction, Sensory Completed 03/15/2018 76429 Nerve Conduction, Motor W/F-Wave Study Completed 03/15/2018 32243 Needle Electromyography Complete, Five Or More Muscles Completed Studied 09/07/201711952 Inject/Drain Joint/Bursa Major W/O US Completed 12/11/2014 39874 Anterior Instrumentation 2-3 Vertebral Segments Completed 12/11/2014 24829 arthrodesis,anterior interbody incl disc space Completed prep,discectomy,de 12/11/201404684 Allograft For Spine Surgery,Structural ([facility] [employer]) Completed 12/04/2014 96120 EKG, Interpretation Only Completed Encounters Type Date Location Provider Dx Diagnosis Office Visit 03/22/2018 [facility] Billy Ramos, R20.0 Anesthesia of 9:15a skin Office Visit 12/30/2017 [facility] Billy Ramos, M79.661 Pain in right 9:45a lower leg M79.671 Pain in right foot R20.0 Anesthesia of skin Office Visit 11/04/2017 10:30a [facility] Billy Ramos, M79.671 Pain in Clinic right foot R20.0 Anesthesia of skin Office Visit 10/28/2017 2:30p Orthopedic Sebastian Tamez, S46.012D Strain of Services Of MD bruce/alexa [facility] rotator cuff of left shoulder, subs Office Visit 09/24/2017 8:15a Orthopedic Sebastian Tamez S46.012A Strain of Services Of MD bruce/alexa [facility] rotator cuff of left shoulder, init M54.2 Cervicalgia S46.012D Strain of teo/alexa the rotator cuff of left shoulder, subs Office Visit 09/07/2017 Orthopedic Sebastian Tamez S46.012A Strain of 2:30p Services Of Juan Daniel bruce/alexa the rotator cuff of left shoulder, init Office Visit 08/23/2017 Neurosurgery Julio César M54.2 Cervicalgia 10:00a Services Of Devin Chirinos M.D. M25.512 Pain in left shoulder Office Visit 12/11/2014 [facility] E11.9 Type 2 diabetes 8:13a Assoc,deanna Cisneros, N.P. mellitus without Hospitalists complications E78.5 Hyperlipidemia, unspecified G89.29 Other chronic pain I10 Essential (primary) hypertension Office Visit 11/22/2014 Neurosurgery Julio César M47.22 Other spondylosis 9:45a Services Of Devin Chirinos M.D. with radiculopathy, cervical region Office Visit 10/29/2014 Neurosurgery Julio César 721.0 Spondylosis 10:15a Services Of Devin Chirinos M.D. Cervical W/O Myelopathy 719.41 Pain Joint Shoulder Region Office Visit 10/15/2014 1:45p Neurosurgery Julio César Chirinos 721.0 Spondylosis Services Of Devin Jesus Cervical W/O Myelopathy Office Visit 09/11/2014 1:45p Orthopedic Janel 721.1 Spondylosis Services Of LUISITO Haynes Cervical W/ Myelopathy Office Visit 08/22/2014 1:30p Orthopedic Jaswant 721.1 Spondylosis Services Of Juan Daniel Helton M.D. 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 The underlying ankle problem should be dealt with by her orthopedist and the pain syndrome a pain medication doctor would be the best one to treat. Dr Hu has her on seemingly appropriate medications but since she is not doing well she wants to get a second opinion at an academic center but to continue with Dr Hu.Referral:Terry Ordonez MD, AnesthesiologyFollow up:will be glad to see as needed
--- NOTE | 2018-06-14 12:15 | ED ---
Upper Extremity Pain - HPI Summary HPI Summary: This patient is a 72 year old F presenting to ED with a chief complaint of right shoulder pain after mechanical fall. Patient was sleeping on couch last night and fell on the floor on her right shoulder. Pain is reported to have onset this morning. She also reports having weakness on the right side since two weeks ago and after her surgery in 2016. She also has bruises on her right knuckles. She denies CP, palpitations, and SOB. She is unaware if she hit her head. Per traige note, "Pt states that she can't feel her fingers. Pt stated that has some tremors that started last week". Triage note also states that the patient "has been dropping things x2 weeks". Patient rates the pain 8/10 in severity. PMHx of DM, HTN, HLD, asthma, GERD, renal calculi, and arthritis. PSHx : gall bladder, hysterectomy and appendectomy, right knee replacement, cervical spine plate & screws/fusion. FHx HTN. She is a former smoker but does not drink EtOH or use drugs. - History of Current Complaint Chief Complaint: EDNeurologicalDeficit Stated Complaint: WEAKNESS/KEEP FALLING PER PT Time Seen by Provider: 06/14/18 11:34 Hx Obtained From: Patient Hx Last Menstrual Period: n/a Mechanism Of Injury: Fall From Height Of: - Sleeping on couch Onset/Duration: Started Days Ago - Last night fell off couch, pain onset this morning Severity Currently: Severe - 8/10 Pain Location: Shoulder - Right Aggravating Factor(s): Nothing Alleviating Factor(s): Nothing Associated Signs & Symptoms: Positive: Weakness, Other - NEGATIVE - PALPITATIONS. Negative: Chest Pain, SOB - Allergies/Home Medications Allergies/Adverse Reactions: Allergies Allergy/AdvReac Type Severity Reaction Status Date / Time azithromycin Allergy Rash Verified 06/14/18 14:20 cefaclor Allergy Rash Verified 06/14/18 14:20 celecoxib [From Celebrex] Allergy GI Upset Verified 06/14/18 14:20 cephalexin [From Keflex] Allergy Rash Verified 06/14/18 14:20 codeine Allergy Rash Verified 06/14/18 14:20 cyclobenzaprine Allergy Rash Verified 06/14/18 14:20 [From Flexeril] erythromycin base Allergy Rash Verified 06/14/18 14:20 Iodinated Contrast- Oral and Allergy Rash Verified 06/14/18 14:20 IV Dye levofloxacin [From Levaquin] Allergy Rash Verified 06/14/18 14:20 morphine Allergy Rash Verified 06/14/18 14:20 oxycodone Allergy Rash Verified 06/14/18 14:20 Penicillins Allergy Rash Verified 06/14/18 14:20 Sulfa (Sulfonamide Allergy Rash Verified 06/14/18 14:20 Antibiotics) tetracycline Allergy Rash Verified 06/14/18 14:20 Home Medications: Home Medications Acetaminophen [Acetaminophen Extra Strength] 2,000 mg PO DAILY PRN 06/14/18 [ History Confirmed 06/14/18] Azelastine 0.05% (OPHTH)(NF) [Optivar 0.05% (NF)] 1 drop RIGHT EYE BID 06/14/18 [History Confirmed 06/14/18] Benzonatate CAP* [Tessalon 100 MG CAP*] 100 mg PO TID PRN 06/14/18 [History Confirmed 06/14/18] Chlorthalidone TAB* [Hygroton TAB*] 25 mg PO DAILY 06/14/18 [History Confirmed 06/14/18] FLUoxetine CAP* [PROzac CAP*] 20 mg PO DAILY 06/14/18 [History Confirmed ] Ferrous Sulfate TAB* 325 mg PO BID 06/14/18 [History Confirmed 06/14/18] Furosemide TAB* [Lasix TAB*] 40 mg PO DAILY 06/14/18 [History Confirmed 06/14/18 ] Magnesium Oxide TAB* [MagOx 400 TAB*] 800 mg PO QPM 06/14/18 [History Confirmed 06/14/18] Metaxalone TAB* [Skelaxin TAB*] 800 mg PO TID 06/14/18 [History Confirmed ] Montelukast Sodium TAB* [Singulair TAB*] 10 mg PO DAILY PRN 06/14/18 [History Confirmed 06/14/18] Oxymorphone ER (NF) [Opana ER (NF)] 10 mg PO Q12H PRN 06/14/18 [History Confirmed 06/14/18] Pregabalin CAP(*) [Lyrica CAP(*)] 50 mg PO TID PRN 06/14/18 [History Confirmed 06/14/18] Spironolactone TAB* [Aldactone TAB*] 25 mg PO DAILY 06/14/18 [History Confirmed 06/14/18] amLODIPine TAB* [Norvasc 5 mg TAB*] 5 mg PO QPM 06/14/18 [History Confirmed ] metFORMIN* [Glucophage 1000 MG TAB *] 1,000 mg PO BID 06/14/18 [History Confirmed 06/14/18] PMH/Surg Hx/FS Hx/Imm Hx Endocrine/Hematology History: Reports: Hx Diabetes, Hx Thyroid Disease Cardiovascular History: Reports: Hx Hypertension Denies: Hx Pacemaker/ICD, Other Cardiovascular Problems/Disorders Respiratory History: Reports: Hx Asthma - allergies Denies: Hx Chronic Obstructive Pulmonary Disease (COPD), Other Respiratory Problems/Disorders GI History: Reports: Hx Gastroesophageal Reflux Disease Denies: Hx Ulcer History: Reports: Hx Kidney Stones - IN THE PAST Denies: Hx Renal Disease Musculoskeletal History: Reports: Hx Arthritis - ALL OVER Denies: Other Musculoskeletal History Sensory History: Reports: Hx Cataracts - BEGINNING STAGES, Hx Contacts or Glasses - GLASSES Denies: Hx Hearing Aid Opthamlomology History: Reports: Hx Cataracts - BEGINNING STAGES, Hx Contacts or Glasses - GLASSES Neurological History: Denies: Other Neuro Impairments/Disorders Psychiatric History: Reports: Hx Depression - IN THE PAST Denies: Hx Panic Disorder - Cancer History Cancer Type, Location and Year: skin; thyroid Hx Chemotherapy: No Hx Radiation Therapy: No - Surgical History Surgery Procedure, Year, and Place: 1974 Gall bladder. hysterectomy & APPENDECTOMY. RT KNEE REPLACEMENT. cervical spine - PLATE & SCREWS/FUSION. Rt KNEE - BIOPSY - CHECKING FOR MS - NEGATIVE Hx Anesthesia Reactions: Yes - DIFF WAKING Infectious Disease History: No Infectious Disease History: Denies: Hx Clostridium Difficile, Hx Hepatitis, Hx Human Immunodeficiency Virus (HIV), Hx of Known/Suspected MRSA, Hx Shingles, Hx Tuberculosis, Hx Known/ Suspected VRE, Hx Known/Suspected VRSA, History Other Infectious Disease, Traveled Outside the [place] in Last 30 Days - Family History Known Family History: Positive: Hypertension - Social History Alcohol Use: None Substance Use Type: Reports: None, Prescribed Hx Tobacco Use: Yes Smoking Status (MU): Former Smoker Type: Cigarettes Amount Used/How Often: 3 PACKS A DAY Have You Smoked in the Last Year: No Review of Systems Constitutional: Other - POSITIVE - FALL Negative: Palpitations, Chest Pain Negative: Shortness Of Breath Musculoskeletal: Other - Right shoulder pain, bruises on right knuckles Neurological: Other - Tremors beginning last week Positive: Weakness - RIGHT SIDED , Numbness - Cannot feel fingers All Other Systems Reviewed And Are Negative: Yes Physical Exam - Summary Physical Exam Summary: VITAL SIGNS: Reviewed. GENERAL: Patient is a well-developed and nourished female who is lying comfortable in the stretcher. Patient is not in any acute respiratory distress. HEAD AND FACE: No signs of trauma. No ecchymosis, hematomas or skull depressions. No sinus tenderness. EYES: PERRLA, EOMI x 2, No injected conjunctiva, no nystagmus. EARS: Hearing grossly intact. Ear canals and tympanic membranes are within normal limits. MOUTH: Oropharynx within normal limits. Dry mouth. NECK: Supple, trachea is midline, no adenopathy, no JVD, no carotid bruit, no c- spine tenderness, neck with full ROM. CHEST: Symmetric, no tenderness at palpation LUNGS: Clear to auscultation bilaterally. No wheezing or crackles. CVS: Regular rate and rhythm, S1 and S2 present, no murmurs or gallops appreciated. ABDOMEN: Soft, non-tender. No signs of distention. No rebound no guarding, and no masses palpated. Bowel sounds are normal. EXTREMITIES: Slight weakness in RUE and RLE, chronic since 2016. no edema, no cyanosis or clubbing. NEURO: Alert and oriented x 2 is her baseline. No acute neurological deficits. Speech is normal and follows commands. SKIN: Dry and warm Triage Information Reviewed: Yes Vital Signs On Initial Exam: Initial Vitals Temp Pulse Resp BP Pulse Ox 97.9 F 86 15 133/50 96 06/14/18 11:00 06/14/18 11:00 06/14/18 11:00 06/14/18 11:00 06/14/18 11:00 Vital Signs Reviewed: Yes Diagnostics - Vital Signs Vital Signs Temp Pulse Resp BP Pulse Ox 06/14/18 11:00 97.9 F 86 15 133/50 96 - Laboratory Result Diagrams: 06/14/18 12:30 06/14/18 15:39 Lab Statement: Any lab studies that have been ordered have been reviewed, and results considered in the medical decision making process. - Radiology CXR Radiology Interpretation Completed By: Radiologist Summary of Radiographic Findings: NO EVIDENCE FOR ACUTE DISEASE. Dr. Harden has reviewed this radiology report. RIGHT SHOULDER X-RAY Radiology Interpretation Completed By: Radiologist Summary of Radiographic Findings: IMPRESSION: MODERATE OSTEOARTHRITIC CHANGE IN THE ACROMIOCLAVICULAR JOINT. THIS REPORT WAS REVIEWED BY DR. HARDEN. - CT Brain CT CT Interpretation Completed By: Radiologist Summary of CT Findings: NO ACUTE INTRACRANIAL PATHOLOGY. CHRONIC SMALL VESSEL ISCHEMIC CHANGES. Dr. Harden has reviewed this radiology report. - EKG 1150 Cardiac Rate: NL - 74 EKG Rhythm: Sinus Rhythm ST Segment: Normal EKG Comparison: No Significant Change - Similar to 12/04/2014 Summary of EKG Findings: Sinus rhythm 74 bpm, no st elevation, normal axis. Similar to 12/04/14 1323 Cardiac Rate: NL - rate of 71 BPM EKG Rhythm: Sinus Rhythm Summary of EKG Findings: EKG showed 71 BPM, no ST elevations, no hyper acute T waves. Course/Dx - Course Assessment/Plan: This patient is a 72-year-old female who presents to the emergency department with a chief complaint of having an accidental fall, right shoulder pain, and biceps weakness. Patient reports that her weakness at present since 2016. She reports that she was sleeping and the couch and she accidentally fell landing on the right side of the her body. She doesnt remember much of this occurrence. Head CT IMPRESSION: NO ACUTE INTRACRANIAL PATHOLOGY. CHRONIC SMALL VESSEL ISCHEMIC CHANGES. CXR IMPRESSION: NO EVIDENCE FOR ACUTE DISEASE. X-ray of the right shoulder he impression: Moderate osteoarthritis changes in the acromioclavicular joint. Blood test results without any significant abnormality except for hemoglobin 11.1, sodium 132, potassium 7.7, BUN is 98 creatinine is 2.65. AST is 12 and serum alcohol is less than 10. EKG is a normal sinus rhythm without any hyperacute T waves. In the ED course the patient was given dextrose, insulin, Veltassa, calcium gluconate and albuterol for treatment of his hyperkalemia. At this point I discussed my physical exam and findings with Dr. Richard from the ICU and she accepted patient for admission. The patient was placed with a Ikran catheter she had a second IV access and. The patient is hemodynamically stable. Before the patient was admitted to the ICU at [facility] at 3:[address] Richard from the ICU and she reports that there is no dialysis services therefore she is unable to accept the patient to the ICU. Therefore she recommends for the patient to be transferred to another facility. The patient is hemodynamically stable alert oriented 3. I discussed with and Dr. Le from [facility] in [place] who accepted the patient for transfer to the institution. The patient continues to be hemodynamically stable alert and oriented 3. I also discussed the case with Dr. Garcia from nephrology at [facility] and he will consult for this patient. - Diagnoses Provider Diagnoses: Acute renal failure, Hyperkalemia - Physician Notifications Discussed Care of Patient With: Johana Richard Time Discussed With Above Provider: 13:23 Instructed by Provider To: Other - Patient's case was discussed with Dr. Richard , Dr. Richard accepts for admission to ICU. 1535 - Dr. Richard has reported that there is not dialysis available. Therefore, Dr. Le from [facility] in [place] was contacted, Dr. Le accepts the patient for transfer, patient will be transferred to telemetry. 1555 - Dr. Le called back asking that nephrology be consulted on patient's case. 1612 - Patient's case was discussed wtih Dr. Garcia, he agrees to consult on the patient's case. Patient will be transferred to [facility]. - Critical Care Time Critical Care Time: 75-104 min Discharge - Sign-Out/Discharge Documenting (check all that apply): Patient Departure - transfer Patient Received Moderate/Deep Sedation with Procedure: No - Discharge Plan Condition: Stable Disposition: TRANS HIGHER LVL OF CARE FAC Referrals: Alin Hamlin DO [Primary Care Provider] - - Billing Disposition and Condition Condition: STABLE Disposition: Trans Higher Lvl of Care Fac - Attestation Statements Document Initiated by Scribe: Yes Documenting Scribe: Hasmukh Barreto Provider For Whom Jerome is Documenting (Include Credential): Dre Harden MD Scribe Attestation: Hasmukh Coello, scribed for Dre Harden MD on 06/14/18 at 1619. Scribe Documentation Reviewed: Yes Provider Attestation: The documentation as recorded by the brieibHasmukh tran and Reza Barreto accurately reflects the service I personally performed and the decisions made by me, Dre Harden MD Status of Scribe Document: Viewed
[2018-06-14 12:42] LABS: ABS Basophils 0 10^3/ul (0-0.2); ABS Eosinophils 0.2 10^3/ul (0-0.6); ABS Monocytes 0.6 10^3/ul (0-0.8); ABS Neutrophils 5.5 10^3/ul (1.5-7.7); ABS Nucleated RBC 0 10^3/ul; Eosinophil % 2.3 %; Hematocrit 34 % (33-41); Hemoglobin 11.1 g/dL (12.0-16.0); Lymphocyte % 24.3 %; Mean Corpuscular HGB Conc 32 g/dL (31-36); Mean Corpuscular Hemoglobin 30 pg (27-31); Mean Corpuscular Volume 92 fL (80-97); Mean Platelet Volume 7.8 fL (7.4-10.4); Nucleated Red Blood Cells % 0; Platelet Count 347 10^3/uL (150-450); Red Blood Count 3.74 10^6 /uL (3.70-4.87); Red Cell Distribution Width 15 % (10.5-15); White Blood Count 8.4 10^3/uL (3.5-10.8)
[2018-06-14 12:51] LABS: INR 0.96 (0.82-1.09)
[2018-06-14 13:01] LABS: ALT 12 U/L (7-52); AST 12 U/L (13-39); Albumin 4.3 g/dL (3.2-5.2); Albumin/Globulin Ratio 1.3 (1-3); Alkaline Phosphatase 78 U/L (34-104); BUN/Creatinine Ratio 26.8 (8-20); Blood Urea Nitrogen 98 mg/dL (6-24); CO2 Carbon Dioxide 22 mmol/L (22-32); Calcium 9.1 mg/dL (8.6-10.3); Chloride 104 mmol/L (101-111); EGFR African American 14.9 (>60); EGFR Non-African American 12.3 (>60); Globulin 3.2 g/dL (2-4); Glucose 85 mg/dL (70-100); Sodium 132 mmol/L (135-145); Total Protein 7.5 g/dL (6.4-8.9)
[2018-06-14 13:16] LABS: Anion Gap 6 mmol/L (2-11); Potassium 7.7 mmol/L (3.5-5.0)
[2018-06-14] MEDS ORDERED: Insulin REGULAR(*) 1 UNITS UNIT IV PUSH ONE ×2 (13:16→16:05)
[2018-06-14] MEDS ORDERED: Calcium Gluconate INJ* 1 GM in NS 0.9% 50 ML* 50 ML IVPB ONE (13:16)
[2018-06-14] MEDS ORDERED: Albuterol HFA INHALER* 8 gm MDI INH ONE (13:18)
[2018-06-14] MEDS ORDERED: NS 0.9% 1000 ML** 1,000 ML IV ONE (13:24)
[2018-06-14] MEDS ORDERED: Dextrose 50% VIAL 50 ml ONE (13:32)
[2018-06-14] MEDS ORDERED: NS 0.9% 50 ML* 50 ML ONE (13:32)
[2018-06-14 13:33] LABS: Alcohol < 10 mg/dL (<10)
[2018-06-14] MEDS: Dextrose 50% Syringe 50 ML* 25 GM/50 ML SYRINGE IV PUSH PRN ×3 (13:43→16:30)
--- NOTE | 2018-06-14 14:46 | HP ---
History of Present Illness - History of Present Illness Reason for Visit: fall with right sided weakness History of Present Illness: 72 yo F presents after having rolled off the couch and hitting the floor yesterday. She reports muscle cramping of right leg since surgery in 2016 and parathesias of right hand. Denies chest pain or palpitations. She reports several days of dry mouth, but says she has been drinking lots of water. On workup head CT negative. Potassium elevated at 7.7. Creatinine > 3 with no history of renal disease. Given D50 and insulin. - Past Medical History Cardiac: Hyperlipidemia Pulmonary: Asthma Gastrointestinal: GERD Musculoskeletal: Osteoarthritis Renal/: Other - history of kidney stones Endocrine: Diabetes, Hypothyroidism - Past Surgical History Past Surgical History: Appendectomy, Cholecystectomy, Hysterectomy, Other - cervical spine fusion, Total Knee Replacement - Past Family History Family History: Hypertension - Past Social History Smoke: Quit Alcohol: None Drugs: None Review of Systems - Review of Systems Constitutional: Negative: Fever, Chills, Sweats, Weakness, Malaise, Other Eyes: Negative: Pain, Vision Change, Conjunctivae Inflammation, Eyelid Inflammation, Redness, Other ENT: Negative: Ear Pain, Ear Discharge, Nose Pain, Nose Discharge, Nose Congestion, Mouth Pain, Mouth Swelling, Throat Pain, Throat Swelling, Other Respiratory: Negative: Cough, Dry, Shortness of Breath, Hemoptysis, SOB with Excertion, Pleuritic Pain, Sputum, Wheezing Cardiovascular: Negative: Chest Pain, Palpitations, Orthopnea, Paroxysmal Noc. Dyspnea, Edema, Light Headedness, Other Gastrointestinal: Negative: Nausea, Vomiting, Abdominal Pain, Diarrhea, Constipation, Melena, Hematochezia, Other Genitourinary: Negative: Dysuria, Frequency, Incontinence, Hematuria, Retention , Other Musculoskeletal: Positive: Shoulder Pain - right sided Neurological: Positive: Weakness - right arm weakness - Medications/Allergies Allergies/Adverse Reactions: Allergies Allergy/AdvReac Type Severity Reaction Status Date / Time azithromycin Allergy Rash Verified 06/14/18 14:20 cefaclor Allergy Rash Verified 06/14/18 14:20 celecoxib [From Celebrex] Allergy GI Upset Verified 06/14/18 14:20 cephalexin [From Keflex] Allergy Rash Verified 06/14/18 14:20 codeine Allergy Rash Verified 06/14/18 14:20 cyclobenzaprine Allergy Rash Verified 06/14/18 14:20 [From Flexeril] erythromycin base Allergy Rash Verified 06/14/18 14:20 Iodinated Contrast- Oral and Allergy Rash Verified 06/14/18 14:20 IV Dye levofloxacin [From Levaquin] Allergy Rash Verified 06/14/18 14:20 morphine Allergy Rash Verified 06/14/18 14:20 oxycodone Allergy Rash Verified 06/14/18 14:20 Penicillins Allergy Rash Verified 06/14/18 14:20 Sulfa (Sulfonamide Allergy Rash Verified 06/14/18 14:20 Antibiotics) tetracycline Allergy Rash Verified 06/14/18 14:20 Medications: Current Medications Dextrose (D50w Syringe 50 Ml*) 25 gm IV PUSH ONCE PRN PRN Reason: hyperkalemia Last Admin: 06/14/18 13:43 Dose: 12.5 gm Sodium Chloride (Ns 0.9% 1000 Ml) 1,000 mls @ 1,000 mls/hr IV .PER RATE ONE Stop: 06/14/18 14:23 Last Admin: 06/14/18 13:46 Dose: 1,000 mls/hr Patiromer (Veltassa Powder*) 8.4 gm PO ONCE ONE Stop: 06/15/18 13:24 Exam - Exam Vital Signs: Vital Signs (72 hours) 06/14/18 06/14/18 06/14/18 11:00 11:36 12:06 Temperature 97.9 F Pulse Rate 86 87 74 Respiratory 15 19 19 Rate Blood Pressure 133/50 120/69 121/97 (mmHg) O2 Sat by Pulse 96 94 95 Oximetry General: Alert, Oriented x3 HEENT: Atraumatic, Other - dry mucus membranes Lungs: Clear to auscultation, Normal air movement Cardiovascular: Regular rate, Normal S1, Normal S2 Abdomen: Normal bowel sounds, Soft, No tenderness Extremities: No clubbing, No cyanosis, No edema Skin: No rashes, No breakdown Neurological: Normal speech, Strength at 5/5 X4 ext Psych/Mental Status: Mental status NL, Mood NL Assessment/Plan - Assessment/Plan Assessment: 72 yo F presents on 06/14 after a mechanical fall with right sided weakness. Head CT without acute pathology. Found to have a K of 7.7 and Cr of 3.65. Treated with D50 and insulin. Plan: Cardiovascular: (1) Benign essential HTN -- HR 73-91 -- SBP 120-133 -- Telemetry -- EKG: NSR -- Troponin 0.00 Home meds: Valsartan/HCTZ, spironolactone, Lasix, Chlorthalidone, amlodipine Pulmonary: (1) chronic asthma; (2) former smoker -- RR 15-19 -- sats 94-96 on RA -- CXR: NAD Home meds: Montelukast, Tessalon Gastrointestinal: (1) GERD -- LFTs within normal limits -- diet: renal -- bowel regimen: none -- ulcer prophylaxis: not indicated at this time Home meds: None Endocrine: (1) Type 2 diabetes; (2) Chronic thyroid disease -- monitor BGs Home meds: Metformin Renal: (1) Acute renal failure; (2) hx of kidney stones -- UOP: not recorded -- Cr 3.65 -- Lytes Na 132, hydrate with NS K 7.7, D50 and insulin. Patiromer. asymptomatic Ca 9.1 -- IVF: NS @ 100 ml/hr -- consult Nephrology Home meds: spironolactone, Lasix, Chlorthalidone, Mag ox Infectious disease: No acute issues -- Tmax 97.9 -- WBC 8.4 -- Micro none -- ABX none Home meds: None Neurologic: (1) Mechanical fall; (2) Right sided weakness, exacerbated; (3) chronic arthritis with hx of shoulder surgery in 2016 -- CT brain, 06/14: NAD. chronic small vessel changes -- PT consult Home meds: Lyrica, Metaxalone, prozac, tylenol Hematological: No acute issues -- Hgb 11.1 -- Plt 347 -- Coags INR 0.96 -- DVT prophylaxis: SQ Heparin Home meds: ferrous sulfate Metabolic: No acute issues -- lactic acid 1.5 Home meds: None Other: No acute issues Home meds: Azelastine eye drops Deep vein thrombosis prophylaxis: SQ Heparin Dietary: Not indicated at this time Condition: stable Prognosis: good Code status: full Disposition: transfer for possible urgent hemodialysis I called Dr. Delvalle regarding the patient's elevated potassium levels. He informed me that the hospital does not have HD capability after 2pm and that if she were to deteriorate +/- develop cardiac arrhythmias we would not be able to effectively treat it until business hours tomorrow. She does not have chronic renal issues, and we do not have a trend on either K or Cr. It is entirely possible that her potassium will continue to rise resulting in life threatening arrhythmias. She is currently stable and would tolerate transfer now. If she develops arrhythmias she will not longer be safe for transport and we will have missed our window to get her to definitive therapy. I discussed these issues with Dr. Hart as well. I have recommended transfer to ED for urgent HD. Cumulative time spent in the care of this patient (excluding any procedure time) : at least 50 minutes. Patient care included clinical interview (with patient and/or family), bedside exam of the patient, review of labs, x-rays, and other ancillary data, coordination of (respiratory, nursing care, review of patient's records, discussion regarding patients management with involved consultants, primary physician, pharmacists, and other healthcare personnel (dietary, case management , physical/occupational therapy etc.)
[2018-06-14] MEDS ORDERED: Patiromer POWDER* 8.4 GM PAK PO ONE (15:00)
[2018-06-14] MEDS ORDERED: NS 0.9% 1000 ML** 1,000 ML IV SCH (16:00)
[2018-06-14 16:02] LABS: Albumin 4.3 g/dL (3.2-5.2); Albumin/Globulin Ratio 1.4 (1-3); Calcium 9.2 mg/dL (8.6-10.3); EGFR African American 15.4 (>60); EGFR Non-African American 12.7 (>60); Globulin 3.1 g/dL (2-4); Total Bilirubin 0.3 mg/dL (0.2-1.0); Total Protein 7.4 g/dL (6.4-8.9)
[2018-06-14 16:03] LABS: Potassium 6.5 mmol/L (3.5-5.0)
[2018-06-14] MEDS ORDERED: Dextrose 50% Syringe 50 ML* 25 GM/50 ML SYRINGE IV PUSH PRN (16:05)
[2018-06-14] MEDS ORDERED: Dextrose 50% Syringe 50 ML* 25 GM/50 ML SYRINGE ONE (16:26)
[2018-06-14 17:14] VITALS: BP 122/56
== END 2018-06-14 17:20 | disposition short-term general hospital (02) ==
LOC: ED 10:57
DX: I12.9 Hypertensive chronic kidney disease with stage 1 through stage 4 chronic kidney disease, or unspecified chronic kidney disease (principal); E11.22 Type 2 diabetes mellitus with diabetic chronic kidney disease; E87.5 Hyperkalemia; M25.511 Pain in right shoulder; R53.1 Weakness; E78.5 Hyperlipidemia, unspecified; K21.9 Gastro-esophageal reflux disease without esophagitis; Z87.442 Personal history of urinary calculi; Z87.891 Personal history of nicotine dependence
CPT/HCPCS: 36415; 70450; 71045; 80053; 80320; 83605; 83735; 84484; 85025; 85610; 86850; 86900; 86901; 93005; 96361; 96365; 99284; A9270-GY; G0480; J0610

== ENCOUNTER 2018-07-03 14:34 | Emergency (ER) | payer MEDICARE, MEDICAID ==
--- NOTE | 2018-07-03 15:21 | ED ---
Upper Extremity Pain - HPI Summary HPI Summary: This patient is a 72 year old F presenting to [facility] with a chief complaint of left shoulder and left arm pain for the past three days. Reports left hand numbness. Pain unchanged by specific action. Reports neck pain. Denies chest pain. Patient additionally reports a recent admission for kidney failure and TIA. - History of Current Complaint Chief Complaint: EDChestPainROMI Stated Complaint: HEADACHE, SHORT OF BREATH, ARM NUMBNESS AND PAIN P Time Seen by Provider: 07/03/18 15:01 Hx Obtained From: Patient Hx Last Menstrual Period: n/a Mechanism Of Injury: Unknown Onset/Duration: Started Days Ago Timing: Constant Pain Location: Shoulder, Arm, Hand Aggravating Factor(s): Nothing Alleviating Factor(s): Nothing Associated Signs & Symptoms: Positive: Numbness/Tingling - Allergies/Home Medications Allergies/Adverse Reactions: Allergies Allergy/AdvReac Type Severity Reaction Status Date / Time azithromycin Allergy Rash Verified 06/14/18 14:20 cefaclor Allergy Rash Verified 06/14/18 14:20 celecoxib [From Celebrex] Allergy GI Upset Verified 06/14/18 14:20 cephalexin [From Keflex] Allergy Rash Verified 06/14/18 14:20 codeine Allergy Rash Verified 06/14/18 14:20 cyclobenzaprine Allergy Rash Verified 06/14/18 14:20 [From Flexeril] erythromycin base Allergy Rash Verified 06/14/18 14:20 Iodinated Contrast- Oral and Allergy Rash Verified 06/14/18 14:20 IV Dye levofloxacin [From Levaquin] Allergy Rash Verified 06/14/18 14:20 morphine Allergy Rash Verified 06/14/18 14:20 oxycodone Allergy Rash Verified 06/14/18 14:20 Penicillins Allergy Rash Verified 06/14/18 14:20 Sulfa (Sulfonamide Allergy Rash Verified 06/14/18 14:20 Antibiotics) tetracycline Allergy Rash Verified 06/14/18 14:20 PMH/Surg Hx/FS Hx/Imm Hx Endocrine/Hematology History: Reports: Hx Diabetes, Hx Thyroid Disease Cardiovascular History: Reports: Hx Hypertension Denies: Hx Pacemaker/ICD, Other Cardiovascular Problems/Disorders Respiratory History: Reports: Hx Asthma - allergies Denies: Hx Chronic Obstructive Pulmonary Disease (COPD), Other Respiratory Problems/Disorders GI History: Reports: Hx Gastroesophageal Reflux Disease Denies: Hx Ulcer History: Reports: Hx Kidney Stones - IN THE PAST Denies: Hx Renal Disease Musculoskeletal History: Reports: Hx Arthritis - ALL OVER Denies: Other Musculoskeletal History Sensory History: Reports: Hx Cataracts - BEGINNING STAGES, Hx Contacts or Glasses - GLASSES Denies: Hx Hearing Aid Opthamlomology History: Reports: Hx Cataracts - BEGINNING STAGES, Hx Contacts or Glasses - GLASSES Neurological History: Denies: Other Neuro Impairments/Disorders Psychiatric History: Reports: Hx Depression - IN THE PAST Denies: Hx Panic Disorder - Cancer History Cancer Type, Location and Year: skin; thyroid Hx Chemotherapy: No Hx Radiation Therapy: No - Surgical History Surgery Procedure, Year, and Place: 1974 Gall bladder. hysterectomy & APPENDECTOMY. RT KNEE REPLACEMENT. cervical spine - PLATE & SCREWS/FUSION. Rt KNEE - BIOPSY - CHECKING FOR MS - NEGATIVE Hx Anesthesia Reactions: Yes - DIFF WAKING Infectious Disease History: No Infectious Disease History: Denies: Hx Clostridium Difficile, Hx Hepatitis, Hx Human Immunodeficiency Virus (HIV), Hx of Known/Suspected MRSA, Hx Shingles, Hx Tuberculosis, Hx Known/ Suspected VRE, Hx Known/Suspected VRSA, History Other Infectious Disease, Traveled Outside the [place] in Last 30 Days - Family History Known Family History: Positive: Hypertension - Social History Alcohol Use: None Substance Use Type: Reports: None, Prescribed Hx Tobacco Use: Yes Smoking Status (MU): Former Smoker Type: Cigarettes Amount Used/How Often: 3 PACKS A DAY Have You Smoked in the Last Year: No Review of Systems Negative: Chest Pain Positive: Myalgia - neck, left shoulder and arm Positive: Numbness - left hand All Other Systems Reviewed And Are Negative: Yes Physical Exam - Summary Physical Exam Summary: Appearance: The patient is well-nourished in no acute distress and in no acute pain. Skin: The skin is warm and dry and skin color reflects adequate perfusion. HEENT: The head is normocephalic and atraumatic. The pupils are equal and reactive. The conjunctivae are clear and without drainage. Nares are patent and without drainage. Mouth reveals moist mucous membranes and the throat is without erythema and exudate. The external ears are intact. The ear canals are patent and without drainage. The tympanic membranes are intact. Neck: The neck is supple with full range of motion and non-tender. There are no carotid bruits. There is no neck vein distension. Respiratory: Chest is non-tender. Lungs are clear to auscultation and breath sounds are symmetrical and equal. Cardiovascular: Heart is regular rate and rhythm. There is no murmur or rub auscultated. There is no peripheral edema and pulses are symmetrical and equal. Abdomen: The abdomen is soft and non-tender. There are normal bowel sounds heard in all four quadrants and there is no organomegaly palpated. Musculoskeletal: There is no back tenderness noted. Extremities are with full range of motion. There is good capillary refill. There is no peripheral edema or calf tenderness elicited. Tenderness in left rhomboid area and left deltoid. Neurological: Patient is alert and oriented to person, place and time. The patient has symmetrical motor strength in all four extremities. Cranial nerves are grossly intact. Deep tendon reflexes are symmetrical and equal in all four extremities. Psychiatric: The patient has an appropriate affect and does not exhibit any anxiety or depression Triage Information Reviewed: Yes Vital Signs On Initial Exam: Initial Vitals Temp Pulse Resp BP Pulse Ox 98.7 F 78 18 177/97 97 07/03/18 14:47 07/03/18 14:47 07/03/18 14:47 07/03/18 14:47 07/03/18 14:47 Vital Signs Reviewed: Yes Diagnostics - Vital Signs Vital Signs Temp Pulse Resp BP Pulse Ox 07/03/18 14:47 98.7 F 78 18 177/97 97 - Laboratory Result Diagrams: 07/03/18 15:31 07/03/18 15:31 Lab Statement: Any lab studies that have been ordered have been reviewed, and results considered in the medical decision making process. - CT Brain CT CT Interpretation Completed By: Radiologist Summary of CT Findings: No fracture is identified. Fusion of C3-C4 with anterior plate and screws. Right foraminal stenosis at C2-C3 is noted. Minimal spondylosis is noted at C5-C6 and C6-C7. ED Physician has reviewed this report. Course/Dx - Course Course Of Treatment: Ms. Pulido presented with several days of constant left arm pain. She was nontoxic in appearance with stable vital signs. She was tender in her rhomboid area on the left and over the deltoid. She had full range of motion and distal neurovascular motor were completely intact. Her workup was generally unremarkable and I recommended adding a short course of a benzodiazepine as a muscle relaxer rather than which she is taking now. She is on opioid medication but has been for a long time and has tolerance. - Diagnoses Provider Diagnoses: Cervical radiculopathy Discharge - Sign-Out/Discharge Documenting (check all that apply): Patient Departure - discharge Patient Received Moderate/Deep Sedation with Procedure: No - Discharge Plan Condition: Stable Disposition: HOME Prescriptions: LORazepam TAB(*) [Ativan TAB(*)] 0.5 mg PO Q6H PRN #20 tab MDD 4 PRN Reason: Pain Patient Education Materials: Cervical Radiculopathy (ED) Referrals: Crescencio Tucker MD [Primary Care Provider] - 2 Days (Keep your appointment for Wednesday.) Additional Instructions: RETURN TO THE EMERGENCY DEPARTMENT FOR CHANGING OR WORSENING SYMPTOMS. - Billing Disposition and Condition Condition: STABLE Disposition: Home - Attestation Statements Document Initiated by Asafibe: Yes Documenting Scribe: Su Saini Provider For Whom Jerome is Documenting (Include Credential): Bruce Ballard MD Scribe Attestation: ISu, scribed for Bruce Ballard MD on 07/03/18 at 2103. Scribe Documentation Reviewed: Yes Provider Attestation: The documentation as recorded by the Su osman accurately reflects the service I personally performed and the decisions made by me, Bruce Ballard MD Status of Scribe Document: Viewed
[2018-07-03 15:39] LABS: ABS Basophils 0.1 10^3/ul (0-0.2); ABS Eosinophils 0.1 10^3/ul (0-0.6); ABS Lymphocytes 1.8 10^3/ul (1.0-4.8); ABS Monocytes 0.7 10^3/ul (0-0.8); ABS Neutrophils 6.5 10^3/ul (1.5-7.7); Eosinophil % 0.7 %; Hematocrit 35 % (35-47); Hemoglobin 11.7 g/dL (12.0-16.0); Lymphocyte % 20.1 %; Mean Corpuscular HGB Conc 33 g/dL (31-36); Mean Corpuscular Hemoglobin 30 pg (27-31); Mean Corpuscular Volume 90 fL (80-97); Mean Platelet Volume 7.1 fL (7.4-10.4); Nucleated Red Blood Cells % 0.1; Platelet Count 331 10^3/uL (150-450); Red Cell Distribution Width 15 % (10.5-15); White Blood Count 9.1 10^3/uL (3.5-10.8)
--- OUTSIDE RECORDS SUMMARY | 2018-07-03 15:44 | XMS REPORT | Continuity of Care Document ---
:1945 External Reference #:[id number] Author Name Alena Gant Care Team Providers Name Role Phone Alin Hamlin DO Primary Care Physician Unavailable Payers Date Identification Numbers Payment Provider Subscriber Policy Number: [id number] Medicare Blue [employer] Number: [id number] [address] [address] PayID: [id number] [place] [address] Policy Number: [id number] Medicaid [employer] Name: 1 [address] PayID: [id number] [place] [address] Effective: 2005 Policy Number: [id number] [facility] [employer] Onset: 2005 Group Number: [id number] PayID: [id number] [address] Advance Directives Description No Information Available Problems Active Problems Provider Date Cervical spondylosis with myelopathy Jaswant Helton M.D. Onset: 08/22/2014 Mastoiditis Jaswant Helton M.D. Onset: 08/22/2014 Cervical spondylosis without myelopathy Julio César Chirinos M.D. Onset: 10/15/2014 Shoulder joint pain Julio César Chirinos M.D. Onset: 10/29/2014 Convalescence after surgery Julio César Chirinos M.D. Onset: 12/19/2014 Neck pain Julio César hCirinos M.D. Onset: 08/23/2017 Sprain of shoulder and [...] apply small amount Unknown on affected areas 555402-3.1Unit/GM-% twice a day x 5 Cream days [...] Result H/L Range Note Laboratory test 12/11/2014 [facility] Point of Care 145 mg/dL High 74-[address] [place] [address] [phone] CBC No Diff 12/04/2014 [facility] White Blood 9.6 10^3/uL N 4.8-10.[address] [place] [address] [phone] Red Blood Count 4.13 10^6/uL N 4.0-5.4 [...] um3 N 7.4-10.4 Basic Metabolic Panel 12/04/2014 [facility] Sodium 139 mmol/L N 133-[address] [place] [address] [phone] Potassium 4.8 mmol/L N 3.5-5.0 Chloride 102 mmol/L N 101-111 Co2 Carbon Dioxide 31 mmol/L N 22-32 Anion Gap 6 mmol/L N 2-11 Glucose 83 mg/dL N 70-100 Blood Urea Nitrogen 26 mg/dL High 6-24 Creatinine 0.85 mg/dL N 0.51-0.95 BUN/Creatinine Ratio 30.6 High 8-20 Calcium 9.7 mg/dL N 8.6-10.3 Egfr Non- 66.9 N >60 Egfr 86.1 N >60 3 1 [employer] Supervisor: LUZ ANTONIO 2 SDS 12/11/14 3 Because [...] dialysis) Procedures Date Code Description Status 03/15/2018 17511 Nerve Conduction, Sensory Completed 03/15/2018 22211 Nerve Conduction, Motor W/F-Wave Study Completed 03/15/2018 42993 Needle Electromyography Complete, Five Or More Muscles Completed Studied 09/07/201741053 Inject/Drain Joint/Bursa Major W/O US Completed 12/11/2014 70576 Anterior Instrumentation 2-3 Vertebral Segments Completed 12/11/2014 80999 arthrodesis,anterior interbody incl disc space Completed prep,discectomy,de 12/11/201428310 Allograft For Spine Surgery,Structural ([facility]) Completed 12/04/2014 44229 EKG, Interpretation Only Completed Encounters Type Date [...] Pain in left shoulder Office Visit 12/11/2014 [facility] E11.9 Type 2 diabetes 8:13a Assoc,deanna Cisneros, [...] Charlie Huerta 719.41 [facility] Ann Marie Gil Shoulder Region Plan of Treatment Future Appointment(s):07/28/2018 2:00 pm - Ragini Robison MD at [facility] Pnopiaplnf16/24/2019 - Billy Ramos, MDR20.8 Other disturbances of [...]
[2018-07-03 15:57] LABS: Albumin 4.1 g/dL (3.2-5.2); Albumin/Globulin Ratio 1.4 (1-3); BUN/Creatinine Ratio 15.5 (8-20); C Reactive Protein 5.53 mg/L (<8.01); Calcium 9.6 mg/dL (8.6-10.3); EGFR African American 64.1 (>60); Globulin 2.9 g/dL (2-4); Potassium 4.2 mmol/L (3.5-5.0); Total Bilirubin 0.3 mg/dL (0.2-1.0)
[2018-07-03 17:06] VITALS: BP 169/91
== END 2018-07-03 17:04 | disposition home or self-care (01) ==
LOC: ED 14:34
DX: M54.12 Radiculopathy, cervical region (principal); Z87.891 Personal history of nicotine dependence; E11.9 Type 2 diabetes mellitus without complications; E07.9 Disorder of thyroid, unspecified; I10 Essential (primary) hypertension; J45.909 Unspecified asthma, uncomplicated; K21.9 Gastro-esophageal reflux disease without esophagitis; Z88.0 Allergy status to penicillin; Z88.2 Allergy status to sulfonamides; Z88.5 Allergy status to narcotic agent; Z85.850 Personal history of malignant neoplasm of thyroid
CPT/HCPCS: 36415; 72125; 80053; 84484; 85025; 86140; 93005; 99282

== ENCOUNTER 2018-08-24 08:29 | Inpatient (IN) | payer MEDICARE, MEDICAID ==
--- NOTE | 2018-08-17 12:29 | HP ---
AMENDED REPORT NOW INCLUDES DESIGNATED COSIGNER HISTORY AND PHYSICAL: DATE OF ADMISSION/SURGERY: 08/24/18 DATE OF OFFICE VISIT: 08/16/18 SURGEON: Sebastian Tamez MD* (DICTATED BY KO ROWE) PROCEDURE: Left reverse total shoulder arthroplasty. CHIEF COMPLAINT: Left shoulder pain. HISTORY OF PRESENT ILLNESS: Ms. Pulido is a 72-year-old female with continued complaints of left shoulder pain. Despite conservative treatment, she has elected to proceed with a left reverse total shoulder arthroplasty. PAST MEDICAL HISTORY: Hypertension, high cholesterol, diabetes, hypothyroidism , chronic pain, kidney disease, TIA, and complex regional pain disorder. PAST SURGICAL HISTORY: Cholecystectomy, right total knee arthroplasty, deep leg muscle biopsy. CURRENT MEDICATIONS: 1. Oxymorphone 10 mg extended release every 12 hours as well as oxycodone immediate release 10 mg every 8 hours. 2. Fluoxetine 20 mg every morning. 3. Atorvastatin calcium 40 mg at night. 4. Metformin 1000 mg twice a day. 5. Aspirin 81 mg a day. 6. Valsartan/hydrochlorothiazide 160/25 mg a day. 7. Spironolactone 25 mg a day. 8. Levothyroxine 50 mcg daily. 9. Lyrica 25 mg every 8 hours. 10. valsartan 80 mg daily. 11. Metaxalone 800 mg 3 times a day as needed. ALLERGIES: To PENICILLIN, TETANUS TOXOID, SULFA, ANTIBIOTICS, CONTRAST DYE, NAPROXEN, and CODEINE. FAMILY HISTORY: Coronary artery disease, diabetes, and kidney disease. SOCIAL HISTORY: This 72-year-old woman lives with her . She does not smoke or use drugs or alcohol. REVIEW OF SYSTEMS: A complete 14-point review of systems was reviewed. The patient was positive for diabetes, hypothyroidism, history of TIA as well as some kidney disease. She denies history of DVT, PE, hepatitis, HIV, or anesthesia problems. PHYSICAL EXAMINATION GENERAL: She is well developed, well nourished, in no acute distress. VITAL SIGNS: She stands 64 inches tall, weighs 190 pounds. Her blood pressure is 152/78, her heart rate is 77. HEENT: Normocephalic, atraumatic. NECK: Supple. No palpable lymph nodes. PULMONARY: The lungs are clear to auscultation bilaterally. CARDIO: Regular, rate, and rhythm. Strong S1, S2. ABDOMEN: Soft, nontender, and nondistended. NEUROLOGICAL: She is alert and oriented x3. MUSCULOSKELETAL: Left upper extremity: The skin is intact. There are no open wounds or abrasions. She is able to forward flex and abduct to 130 degrees. External rotation to 40 degrees. She has intact sensation. 4/5 rotator cuff strength testing. Positive impingement sign. Positive [place]'s and Speed test. She has a 2+ palpable pulse. ASSESSMENT AND PLAN: Ms. Pulido is a 72-year-old female with continued complaints of left shoulder pain. She has failed conservative treatment and elected to proceed with a left reverse total shoulder arthroplasty. The surgery is scheduled for 08/24/[address] Tamez discussed the risks and benefits of the surgery at today's visit with her and all of her questions were answered. She will follow up with Dr. Tamez 2 weeks after the surgery. KO ROWE [id number]/[facility] #: [id number] MTDEmir
[~2018-08-24 08:29] MED LIST: Acetaminophen TAB* 325 MG PO ONE; Buffered Lidocaine 1% SYRIN* 1 ML/SYRINGE INTRADERM ONE; Famotidine TAB* 20 MG PO ONE; Gabapentin CAP(*) 300 MG PO ONE; Lactated Ringers 1000 ML Bag* 1,000 ML IV SCH; Metoclopramide IV* 5 MG/ML 2 ML VIAL IV SLOW PU ONE; Vancomycin(*) 1,250 MG IV x ONCE IVPB ONE
[2018-08-24] MEDS ORDERED: Metoclopramide IV* 5 MG/ML 2 ML VIAL ONE (08:50)
[2018-08-24] MEDS ORDERED: Acetaminophen TAB* 325 MG ONE (08:50)
[2018-08-24] MEDS ORDERED: Famotidine TAB* 20 MG ONE (08:50)
[2018-08-24] MEDS ORDERED: Buffered Lidocaine 1% SYRIN* 1 ML/SYRINGE INTRADERM ONE (08:51)
[2018-08-24] MEDS ORDERED: Naloxone* 0.4 MG/ML 1 ML VIAL IV PRN (09:34)
[2018-08-24] MEDS ORDERED: fentaNYL* 50 MCG/ML 2 ML VIAL (100 MCG VIAL) IV PRN (09:34)
[2018-08-24] MEDS ORDERED: HYDROcodone/ACETAMIN 5-325 MG* 1 TAB PO PRN (09:34)
[2018-08-24] MEDS ORDERED: Ketorolac INJ* 30 MG/ML 1 ML VIAL IV PRN (09:34)
[2018-08-24] MEDS ORDERED: DiMENhydriNATE IV* 50 MG/ML VIAL IV PUSH PRN (09:34)
[2018-08-24] MEDS ORDERED: HYDROmorphone INJ1* 1 MG/ML SYRINGE IV PRN (09:34)
[2018-08-24] MEDS ORDERED: Rocuronium* 10 MG/ML VIAL ONE ×3 (09:42→11:48)
[2018-08-24] MEDS ORDERED: fentaNYL* 50 MCG/ML 2 ML VIAL (100 MCG VIAL) ONE (09:42)
[2018-08-24] MEDS ORDERED: Midazolam* 1 MG/ML 2 ML VIAL (2 MG) ONE (09:42)
[2018-08-24] MEDS ORDERED: Propofol* 10 MG/ML 20 ML BTL ONE (09:43)
[2018-08-24] MEDS ORDERED: ROPIVACAINE 5 MG/ML 30 ML BTL (0.5%) ONE (09:49)
[2018-08-24] MEDS ORDERED: Lidocaine 1% MPF ** 5 ML VIAL ONE (09:49)
[2018-08-24] MEDS ORDERED: Ropivacaine 0.2% * 2 MG/ML VIAL ONE (10:05)
[2018-08-24] MEDS ORDERED: Ondansetron INJ* 2 MG/ML VIAL ONE (12:10)
[2018-08-24] MEDS ORDERED: Glycopyrrolate IV* 0.2 MG/ML 1 ML VIAL ONE (12:10)
[2018-08-24] MEDS ORDERED: Neostigmine Methylsulfate* 3 MG/3 ML SYRINGE ONE (12:10)
[2018-08-24] MEDS ORDERED: Magnesium Hydroxide LIQ* 30 ML UDC PO PRN (13:06)
[2018-08-24] MEDS ORDERED: Bisacodyl SUPP* 10 MG SUPP PR PRN (13:06)
[2018-08-24] MEDS ORDERED: Polyethylene Glycol 3350* 17 GM PACKET PO PRN (13:06)
[2018-08-24] MEDS ORDERED: Ondansetron ODT TAB* 4 MG PO PRN (13:06)
[2018-08-24] MEDS ORDERED: Ondansetron INJ* 2 MG/ML VIAL IV PRN (13:06)
[2018-08-24] MEDS ORDERED: diPHENhydraMINE PO* 25 MG PO PRN (13:06)
[2018-08-24] MEDS ORDERED: diPHENhydraMINE IV* 50 MG/ML 1 ml VIAL (BENADRYL) IV PRN (13:06)
[2018-08-24] MEDS ORDERED: Vancomycin(*) 1,000 MG in NS 0.9% 250 ML* 250 ML IVPB SCH (14:00)
[2018-08-24] MEDS ORDERED: Dextrose 50% Syringe 50 ML* 25 GM/50 ML SYRINGE IV PUSH PRN (14:13)
[2018-08-24] MEDS: Acetaminophen TAB* 325 MG PO SCH ×2 (14:37→21:22)
[2018-08-24] MEDS: Lactated Ringers 1000 ML Bag* 1,000 ML IV SCH (14:38)
[2018-08-24] MEDS: Oxymorphone IR (NF) 5 MG TAB PO PRN ×2 (14:45→22:07)
--- NOTE | 2018-08-24 15:51 | CONS ---
CONSULTATION REPORT: DATE OF CONSULT: 08/24/18 REQUESTING PHYSICIAN: Dr. Sebastian Tamez. REASON FOR CONSULT: Medical management of comorbidities. HISTORY OF PRESENT ILLNESS: Ms. Pulido is a 72-year-old lady with a past medical history of hypertension, hyperlipidemia, type 2 diabetes, hypothyroidism , CKD stage 2 to 3, chronic pain, TIA who is admitted for an elective left reverse total shoulder arthroplasty. The patient had continued complaints of left shoulder pain and failed conservative treatment, reason why surgery was pursued. As per report, the surgery went well and there was an estimated blood loss of 200 mL. At the time of my evaluation, the patient was still in the PACU and she offered no complaints. She states that she has no pain at this time. Denies any shortness of breath, nausea, or other issues. PAST MEDICAL HISTORY: 1. Hypertension. 2. Hyperlipidemia. 3. Type 2 diabetes. 4. Hypothyroidism. 5. Chronic pain. 6. TIA. 7. CKD stage 2 to 3. Of note, the patient presented to the ED in May 2018 after a fall, and she was found to have a creatinine greater than 3 with hyperkalemia with potassium of 7.7. At that point, the patient was transferred to [facility] in [place] due to the possibility of requiring hemodialysis. Her renal function appears to have recovered nicely with a creatinine of 0.87 on 08/16/18. PAST SURGICAL HISTORY: 1. Status post cholecystectomy. 2. Status post right total knee arthroplasty. 3. Status post appendectomy. 4. Status post hysterectomy. 5. Status post cervical spine fusion. MEDICATIONS: 1. Amlodipine 10 mg p.o. daily. 2. Aspirin 81 mg p.o. daily. 3. Azelastine 0.05% 1 drop to the right eye b.i.d. 4. Baclofen 10 mg p.o. t.i.d. as needed for pain. 5. Fluoxetine 10 mg p.o. daily. 6. Levothyroxine 50 mcg p.o. daily. 7. Losartan 50 mg p.o. daily. 8. Metformin 1000 mg p.o. b.i.d. 9. Montelukast 10 mg p.o. daily. 10. Nystatin cream topical b.i.d. as needed for rash. 11. Opana ER 10 mg p.o. q.12 hours. 12. Oxymorphone 10 mg p.o. t.i.d. 13. Lyrica 25 mg p.o. t.i.d. ALLERGIES: Allergy list is extensive and includes AZITHROMYCIN, CEFACLOR, CEPHALEXIN, CYCLOBENZAPRINE, ERYTHROMYCIN, IODINE, LEVOFLOXACIN, MORPHINE, OXYCODONE, PENICILLIN, SULFA, TETANUS VACCINE, TETRACYCLINE causing rash, CELECOXIB, CODEINE causing GI upset, and the patient has an unknown reaction to PREDNISONE. FAMILY HISTORY: There is a family history of coronary artery disease, diabetes , and kidney disease. SOCIAL HISTORY: There is no history of alcohol, tobacco, or drug use. Surrogate decision maker is her partner Jacques Guy, phone number is . REVIEW OF SYSTEMS: A 10-point review of systems was performed and all the pertinent negatives and positives as per the HPI. PHYSICAL EXAM: Vital Signs: Temperature 97.2, heart rate is 77, respiratory rate is 16, oxygen saturation is 92% on room air, blood pressure is 143/68. HEENT: Pupils are equal. Moist mucous membranes. CVS: Normal S1, S2. Regular rate and rhythm. CHEST: Breath sounds bilaterally with no added sounds. Abdomen: Soft, bowel sounds are present. Extremities: The patient's left upper extremity is in a sling and her surgical dressing is intact. ASSESSMENT AND PLAN: Ms. Pulido is a 72-year-old female with a past medical history of hypertension, hyperlipidemia, type 2 diabetes, hypothyroidism, chronic pain, chronic kidney disease stage 2 to 3, transient ischemic attack, who was admitted for an elective left reverse shoulder arthroplasty. The hospitalist service was consulted to help manage her comorbidities. 1. Type 2 diabetes. The patient is on metformin as outpatient. Her medications will be continued. We will check her fingersticks a.c. and h.s. and cover with lispro sliding scale as needed to try to maintain her glucose below 180 to 200. 2. Hypertension. The patient's blood pressure is controlled at this time. We are going to continue amlodipine with holding parameters. Apparently, her losartan had been discontinued as outpatient, so we would just monitor her numbers for now. 3. Hypothyroidism. We will continue levothyroxine. 4. Chronic kidney disease stage 2 to 3. The patient's renal function has recovered since her episode of acute kidney injury in May. We will continue to monitor. 5. DVT prophylaxis will be with Lovenox as per the orthopedist's recommendation. 6. Code status is full. TIME SPENT: Approximately 55 minutes was spent with patient interview, medical records review, physical examination to complete this admission, more than half this time was spent [id number] with the patient in coordination of care. [id number]/[facility] #: [id number] CLAUDETTE
--- NOTE | 2018-08-24 16:31 | OP ---
CC: Dr. Hu; PCP, Dr. Tucker * DATE OF OPERATION: 08/24/18 - ROOM #346 DATE OF : 49 SURGEON: Sebastian Tamez MD. ASSISTANTS: 1. KO Vasquez. 2. Lisa Colin. Assistants were needed for the entirety of the case to help with positioning, retraction, and were utilized throughout all portions of the case. ANESTHESIOLOGIST: Dr. Enciso. ANESTHESIA: General with interscalene block. PRE-OP DIAGNOSES: 1. Left shoulder pseudoparalysis. 2. Rotator cuff arthropathy. POST-OP DIAGNOSES: 1. Left shoulder pseudoparalysis. 2. Rotator cuff arthropathy. OPERATIVE PROCEDURES: Left shoulder reverse shoulder arthroplasty and open biceps tenodesis. COMPLICATIONS: None. ESTIMATED BLOOD LOSS: 200 cc. OUTPUT: Drain x1. IMPLANTS: 20A Aequalis Reversed II centered glenosphere 36 mm, threaded post baseplate 25 x 35, Ascend Flex size 3B stem with a centered reverse tray and a + 6 poly. DISPOSITION: Stable. INDICATIONS: Flower is a 72-year-old female who has rotator cuff tear and failed conservative management. She has failed injections, physical therapy, anti- inflammatories. She has pseudoparalysis and has limitations in her function. We discussed options including rotator cuff repair as well as reverse shoulder arthroplasty. She has elected to proceed with an arthroplasty. Risks and benefits of the surgery were discussed at length and included, but are not limited to bleeding, infection, damage to nerves; vessels; surrounding structures, wound nonhealing, persistent pain, need for further surgery, scarring, stiffness, incomplete relief of symptoms, risks of anesthesia. She has elected to proceed. DESCRIPTION OF PROCEDURE: The patient was greeted in the preoperative area by the attending surgeon. Correct extremity was marked and consent was confirmed. The patient underwent interscalene nerve block by the anesthesiologist, after which she was brought back to the operating suite where she was placed in the supine position on the operating table. She then underwent general anesthesia and endotracheal intubation, after which she was placed in lazy beach chair position. All bony prominences were padded. The left shoulder was draped free with chlorhexidine soap, scrub, and alcohol wipe, and a final prep with ChloraPrep. After appropriate surgical pause indicating side, site, procedure, and administration of antibiotics, the deltopectoral incision was made using a 15- blade. Soft tissues were carefully dissected. Hemostasis was obtained using electro-cautery device. The deltopectoral interval was identified and the cephalic vein was identified. The cephalic vein and the deltoid were taken laterally. The pec was taken medially. The clavipectoral fascia was identified and excised. The CA ligament was incised. The lateral aspect of the conjoint tendon was identified and freed. The pec insertion was released. The proximal 1 to 1.5 cm was released and the biceps was tenodesed using a heavy nonabsorbable suture. The biceps was tenotomized proximal to that and followed into the joint itself. The subscap was taken down in a subscap peel fashion and tagged with a #5 Ethibond suture. There was evidence of full- thickness tear of the supraspinatus tendon. The head was gently externally rotated and the subscap as well as capsule was released all in one sheath. The head was gently dislocated and brought through the wound. At this point, the provisional neck cut was then made using a free hand using a sagittal saw. The canal finder was then used to find the canal and broaching began, beginning with a size 1 broach and then a size 3 was found to be a good fit with excellent purchase. The protection plate was then placed for attention to the glenoid. The head was pushed back into the wound and the posterior retractor was placed to direct to the glenoid. The soft tissues were removed. The biceps and superior, posterior and anterior labrum were removed; the inferior labrum as well. The superior, middle and inferior glenohumeral ligaments were released. The subscap was mobilized. An anterior neck retractor was placed and the labrum was removed. There was evidence of chondral changes to the glenoid. At this point, a 28 guide was placed and the guide pin was placed in the lower part of the glenoid as she had a very small glenoid sheath somewhat anteriorly. This was then carefully reamed with 25 mm reamer and then hand reamed with a 36 mm footprint reamer. Any excess cartilage was removed. The 8 mm cannulated drill bit was then drilled and then the 6.5 mm drill bit to a depth of about 30 mm. The size 35 length baseplate was chosen and the drill hole was tapped. The final implant was placed with excellent purchase and was secured with 3 interlocking screws with excellent purchase. At this point, the glenosphere was then placed and impacted in position and secured with a set screw and attention was directed to the humerus. The humerus was brought back through the wound. The stem was checked to make sure it was still well seated. A 20-degree retroversion kalina was used for placement. At this point, the trial baseplate and +6 poly were chosen. The shoulder was reduced with appropriate amount of traction. It was taken through range of motion and there was appropriate amount of shuck, external rotation to about 50 degrees, internal rotation to the buttock, and forward flexion to about 145. The final implants were tested and found to be appropriate. The shoulder was then gently dislocated and the final implants were chosen. Three transosseous tunnels were then made and #5 Ethibond sutures were passed for later subscap closure. The final implants were impacted on the back table by the attending surgeon and then impacted into position on the patient with a version kalina to make sure that the version was okay. The shoulder was then reduced again and taken through symmetric range of motion through the same range of motion. The wounds were then copiously irrigated with sterile saline. The subscap was then closed using the previously passed transosseous suture in horizontal mattress configuration. The wounds were copiously irrigated again. An intraarticular drain was then placed. The wounds were irrigated again. A #2 Ethibond suture was then used to close the deltopectoral interval. The wound was irrigated again. Skin was closed in layers with 3-0 Monocryl both for subcutaneous as well as a running Monocryl stitch. Sterile dressings were applied. A Cryo/Cuff and an UltraSling were applied. She was awoken from anesthesia and transferred to the PACU in stable condition. POSTOPERATIVE PLAN: She will be nonweightbearing. She will be in a sling for 6 weeks. She will be admitted overnight for monitoring. We discussed pain management with her pain doctor and we will continue on her current pain medications. She will receive 24 hours of postoperative antibiotics and potentially discharge on postoperative day 1. I will see the patient back in 10 to 14 days. DVT prophylaxis was considered and will be on Lovenox while in- house and discharged without anything due to no previous personal or family history. [id number]/[facility] #: [id number] [facility]
[2018-08-24] MEDS: Insulin LISPRO* 1 UNITS UNIT SUBCUT SCH ×2 (17:15→22:08)
[2018-08-24] MEDS: Baclofen TAB* 10 MG PO PRN (17:24)
[2018-08-24] MEDS: Vancomycin(*) 1,000 MG in NS 0.9% 250 ML* 250 ML IVPB SCH (17:40)
[2018-08-24] MEDS: Pregabalin CAP(*) 25 MG PO PRN (19:58)
[2018-08-24] MEDS: Oxymorphone ER (NF) 5 MG TAB PO SCH (19:58)
[2018-08-24] MEDS: Azelastine 0.05% (OPHTH)(NF) 6 ML BTL RIGHT EYE SCH (21:17)
[2018-08-24] MEDS: Docusate CAP* 100 MG PO SCH (21:23)
[2018-08-24] MEDS: metFORMIN* 1,000 MG TAB PO SCH (21:23)
[2018-08-25] MEDS: Baclofen TAB* 10 MG PO PRN (01:17)
[2018-08-25] MEDS: Vancomycin(*) 1,000 MG in NS 0.9% 250 ML* 250 ML IVPB SCH ×2 (01:18→09:56)
[2018-08-25] MEDS: Pregabalin CAP(*) 25 MG PO PRN ×2 (03:57→12:03)
[2018-08-25] MEDS: Lactated Ringers 1000 ML Bag* 1,000 ML IV SCH (05:34)
[2018-08-25] MEDS ORDERED: Levothyroxine TAB* 25 MCG TAB PO SCH (06:00)
[2018-08-25] MEDS: Acetaminophen TAB* 325 MG PO SCH (06:13)
[2018-08-25] MEDS: Oxymorphone IR (NF) 5 MG TAB PO PRN (06:13)
--- NOTE | 2018-08-25 06:26 | PN ---
Progress Note - Progress Note Date of Service: 08/25/18 Note: Pt seen and examined. Complains of pain and being really sore. Pain meds not helping enough. No SOB, CP. able to void without difficulty Temp Pulse Resp BP Pulse Ox 99.3 F 102 16 157/82 93 08/25/18 03:55 08/25/18 03:55 08/25/18 06:15 08/25/18 03:55 08/25/18 04:56 NAD. AAOx3. pleasant mood. SILT grossly distally. brisk cap refill. able to flex /ext digits. xrays acceptable labs pending A/P 72 yo F s/p L reverse drain to be d/c;d today discussed pain management with Dr Hu may need dose of toradol potential D/C today. PT/OT- NWB. dvt ppx lovenox in house home on ASA
[2018-08-25 06:32] LABS: Hematocrit 32 % (35-47); Hemoglobin 10.5 g/dL (12.0-16.0); Mean Platelet Volume 7.8 fL (7.4-10.4); Platelet Count 285 10^3/uL (150-450)
[2018-08-25 06:53] LABS: BUN/Creatinine Ratio 20.2 (8-20); Calcium 9.3 mg/dL (8.6-10.3); EGFR African American 75.9 (>60); EGFR Non-African American 62.7 (>60); Potassium 4.2 mmol/L (3.5-5.0)
[2018-08-25] MEDS: Oxymorphone ER (NF) 5 MG TAB PO SCH (08:50)
[2018-08-25] MEDS: Docusate CAP* 100 MG PO SCH (08:50)
[2018-08-25] MEDS: metFORMIN* 1,000 MG TAB PO SCH (08:50)
[2018-08-25] MEDS: Insulin LISPRO* 1 UNITS UNIT SUBCUT SCH ×2 (08:51→11:58)
[2018-08-25] MEDS ORDERED: Montelukast Sodium TAB* 10 MG PO SCH (09:00)
[2018-08-25] MEDS ORDERED: amLODIPine TAB* 5 MG PO SCH ×2 (09:00)
[2018-08-25] MEDS ORDERED: FLUoxetine CAP* 20 MG PO SCH (09:00)
[2018-08-25] MEDS: Azelastine 0.05% (OPHTH)(NF) 6 ML BTL RIGHT EYE SCH (09:31)
[2018-08-25] MEDS ORDERED: Enoxaparin(*) 40 MG/0.4 ML SYR SUBCUT SCH (12:00)
[2018-08-25 12:03] VITALS: BP 141/82
--- NOTE | 2018-08-25 12:11 | DS ---
Orthopedic Discharge Summary - Discharge Summary Date of Admission:08/24/18 Date of Discharge: 08/25/18 Date of Surgery: 08/24/18 Attending Orthopedic Provider: Dr Tamez Pre-operative Diagnosis: left shoulder arthritis Operative Procedure: left reverse shoulder arthroplasty Disposition of Patient: home Condition of Patient: stable History: JIMMY MEEK is a 72 year old F with years of increasingly severe left shoulder pain. Patient has failed conservative management and has elected to undergo a reverse left total shoulder replacement Hospital Course: JIMMY was admitted to [facility] on 08/24/18. Patient underwent a left reverse total shoulder replacement without complication followed by a brief recovery in PACU and transfer to the Short Stay Surgical Unit in stable condition. Our hospitalist service, physical therapy and occupational therapy also participated in this patients care. Post- op day 1: patient was alert and in no acute distress. Dressing was clean, dry and intact. Drain was pulled without complication. Operative extremity NVI distally. Physical therapy and occupational therapy goals were met. Home Medications Medication Instructions Recorded Confirmed Type Nystatin CREAM* [Nystatin Cream*] 1 applic TOPICAL BID PRN 05/05/12 08/24/18 History Levothyroxine TAB* [Synthroid 25 50 mcg PO QAM 09/01/12 08/24/18 History MCG TAB*] Azelastine 0.05% (OPHTH)(NF) 1 drop RIGHT EYE BID 06/14/18 08/24/18 History [Optivar 0.05% (NF)] FLUoxetine CAP* [Prozac CAP*] 20 mg PO QAM 06/14/18 08/24/18 History Montelukast Sodium TAB* [Singulair 10 mg PO QAM 06/14/18 08/24/18 History 10 MG TAB*] Oxymorphone ER (NF) [Opana er (NF)] 10 mg PO Q12H PRN 06/14/18 08/24/18 History Pregabalin CAP(*) [Lyrica CAP(*)] 25 mg PO TID PRN 06/14/18 08/24/18 History amLODIPine TAB* [Norvasc 5 mg TAB*] 10 mg PO QAM 06/14/18 08/24/18 History metFORMIN* [Glucophage 1000 MG TAB 1,000 mg PO BID 06/14/18 08/24/18 History *] Aspirin [Aspirin Childrens 81 MG] 81 mg PO QAM 08/16/18 08/24/18 History Baclofen TAB* [Lioresal TAB*] 10 mg PO TID PRN 08/16/18 08/24/18 History Losartan Potassium [Cozaar] 50 mg PO QAM 08/16/18 08/24/18 History Oxymorphone HCl [Oxymorphone HCl 10 mg PO TID 08/16/18 08/24/18 History ER] Acetaminophen TAB* [Tylenol TAB*] 975 mg PO Q8H tab 08/25/18 Rx Docusate CAP* [Colace Cap*] 100 mg PO BID PRN #90 cap 08/25/18 Rx Orthopedic Total Shoulder Instruction Non-weight bearing for operative upper extremity. No active range of motion at the shoulder. Continue elbow, wrist, and hand pendulums shown by PT . Wound Care: OK to shower after third post- operative day, no bathing/ swimming / submerging wound. Use gentle soap, pat dry. Cover with gauze, JESSICA wrap or tape. Pain control with: home pain medications. May also use tylenol and ibuprofen as needed over the counter. Diet: Regular diet, increase fluids and fiber to prevent constipation. Continue to use stool softeners, call office if no bowel motion within 48 hours. Call Orthopedic office for increased drainage, redness, increased pain, or fever. Go to ER with shortness of breath or chest pain. - Antibiotics required prior to any dental work Please call our office with any questions or concerns ([phone]) Follow up with Dr Tamez in 10-14 days, call for appointment No prescription pain medications needed as patient has medications at home from pain management clinic. Dr Hu manages her chronic pain and has recommend DC on home meds.
== END 2018-08-25 12:20 | disposition home or self-care (01) | DRG 483 ==
LOC: OR 08:29 → SSU 13:07 → OBSVTOIN 13:08 → SSU 13:08
PROVIDERS: ADMIT Orthopaedic Surgery; ATTEND Orthopaedic Surgery
PROC: 0RRK00Z Replacement of Left Shoulder Joint with Reverse Ball and Socket Synthetic Substitute, Open Approach (ICD-10-PCS; principal; 2018-08-24 11:30)
DX: M19.012 Primary osteoarthritis, left shoulder (principal); M75.102 Unspecified rotator cuff tear or rupture of left shoulder, not specified as traumatic; I12.9 Hypertensive chronic kidney disease with stage 1 through stage 4 chronic kidney disease, or unspecified chronic kidney disease; E78.5 Hyperlipidemia, unspecified; E03.9 Hypothyroidism, unspecified; N18.3 Chronic kidney disease, stage 3 (moderate); G89.29 Other chronic pain; K21.9 Gastro-esophageal reflux disease without esophagitis; R29.818 Other symptoms and signs involving the nervous system; Z96.651 Presence of right artificial knee joint; E78.00 Pure hypercholesterolemia, unspecified; E11.22 Type 2 diabetes mellitus with diabetic chronic kidney disease; Z90.49 Acquired absence of other specified parts of digestive tract; Z86.73 Personal history of transient ischemic attack (TIA), and cerebral infarction without residual deficits; Z98.1 Arthrodesis status; Z90.710 Acquired absence of both cervix and uterus; Z88.8 Allergy status to other drugs, medicaments and biological substances; Z88.0 Allergy status to penicillin; Z88.5 Allergy status to narcotic agent; Z88.6 Allergy status to analgesic agent; Z88.7 Allergy status to serum and vaccine; Z82.49 Family history of ischemic heart disease and other diseases of the circulatory system; Z83.3 Family history of diabetes mellitus; Z84.1 Family history of disorders of kidney and ureter; Z79.84 Long term (current) use of oral hypoglycemic drugs; Z79.82 Long term (current) use of aspirin; Z91.041 Radiographic dye allergy status; Z88.2 Allergy status to sulfonamides
CPT/HCPCS: 36415; 80048; 85014; 85018; 85049; 88304; 88311; A9270-GY; C1713; C1776; G8978-GP-CI; G8979-GP-CH; J1650; J2250; J2405; J2704; J2710; J2765; J2795; J3010; J3370